=== PATIENT | female | born 1925 | race Caucasian/White ===

== ENCOUNTER 2016-06-20 12:32 | Inpatient (IN) | payer OTHER ==
[2016-06-20] VITALS (8 sets, daily range): BP systolic 115–145; BP diastolic 59–66; PULSE 69–75; TEMP 98
[~2016-06-20] VITALS: Ht 157.5 cm; Wt 55.6 kg
[~2016-06-20 12:32] MED LIST: CARV12.579 PO; CHLO25TA13 PO; CHOL20002 PO; ISOS30TA5 PO; LEVO100T87 PO; NIFE60TA7 PO; NIT4 SL; UBID100C24 PO
--- NOTE | 2016-06-20 12:39 | ERA ---
ER Documentation Chief Complaint Date/Time DATE: 06/20/16 TIME: 12:36 Chief Complaint Shortness of breath HPI The patient is 89-year-old female, presenting to the ER because of acute dyspnea and acute diarrhea that started today. She normally has dialysis on Monday and Monday, however she missed her dialysis last Monday. She has recently been on dialysis for the last 3 months. She denies fever, chills, neck pain, abdominal pain, vomiting, dysuria. She does not smoke or drink Past medical history: Chronic kidney disease on hemodialysis, hypertension, dyslipidemia Past surgical history: Hysterectomy ROS All systems reviewed and are negative except as per history of present illness. Medications Home Meds Reported Medications Calcium Acetate* (Calcium Acetate*) 667 Mg Capsule, 667 MG PO WITH MEALS, #30 CAP 06/20/16 Epoetin Robi (Procrit) 4,000 Unit/1 Ml Vial, 4000 UNIT IJ ONCE A WEEK, VIAL 06/20/16 Nifedipine* (Nifedipine ER*) 90 Mg Tablet.sa, 90 MG PO DAILY, TAB.SA 06/20/16 Hydralazine Hcl* (Hydralazine Hcl*) 25 Mg Tab, 25 MG PO Q8 Y for ELEVATED BLOOD PRESSURE, #90 TAB 06/20/16 Ubidecarenone (Coq-10) 100 Mg Capsule, 100 MG PO DAILY, CAP 12/31/15 Nitroglycerin* (Nitrostat*) 0.4 Mg Tab.subl, 0.4 MG SL Q5MIN Y for CHEST PAIN, BOTTLE 12/31/15 Chlorthalidone* (Chlorthalidone*) 25 Mg Tablet, 25 MG PO DAILY, TAB 12/31/15 Isosorbide Mononitrate* (Isosorbide Mononitrate*) 30 Mg Tab.er.24h, 30 MG PO DAILY, TAB 12/31/15 Cholecalciferol (Vitamin D3) (Vitamin D-3) 2,000 Unit Tablet, 2000 UNIT PO, TAB 12/31/15 Carvedilol* (Carvedilol*) 12.5 Mg Tablet, 12.5 MG PO BID, #60 TAB 12/31/15 Levothyroxine Sodium* (Levothyroxine Sodium*) 100 Mcg Tablet, 100 MCG PO DAILY, TAB 07/22/14 Discontinued Reported Medications Nifedipine* (Nifedipine ER*) 60 Mg Tablet.sa, 60 MG PO BID, TAB.SA 12/31/15 Allergies Allergies: Coded Allergies: Sulfa (Sulfonamide Antibiotics) (Verified Allergy, Severe, RASHES, 06/20/16) PMhx/Soc History of Surgery: Yes (NECK SURGERY) Anesthesia Reaction: No Hx Neurological Disorder: No Hx Respiratory Disorders: No Hx Cardiac Disorders: Yes (HTN) Hx Psychiatric Problems: No Hx Alcohol Use: No Hx Substance Use: No Hx Tobacco Use: No Physical Exam Vitals Vital Signs Date Time Temp Pulse Resp B/P Pulse Ox O2 Delivery O2 Flow Rate FiO2 06/20/16 13:40 Nasal Cannula 2 06/20/16 13:35 Nasal Cannula 2.0 06/20/16 13:16 98.8 98 22 160/80 96 Physical Exam Const: Mild acute distress. Head: Atraumatic. Eyes: Normal Conjunctiva. ENT: Normal External Ears, Nose and Mouth. Neck: Full range of motion. No meningismus. Resp: Bibasilar crackles, tachypnea Cardio: Regular rate and rhythm, no murmurs. Abd: Soft, non distended, normal bowel sounds, non tender. Skin: No petechiae or rashes. Back: No midline or flank tenderness. Ext: Bilateral leg edema, no calf tenderness Neur: Awake and alert. No focal deficit Psych: Normal Mood and Affect. Result Diagram: 06/20/16 1310 06/20/16 1310 Results 24 hrs Laboratory Tests Test 06/20/16 13:10 White Blood Count 9.110^3/ul Red Blood Count 2.6510^6/ul Hemoglobin 10.2g/dl Hematocrit 29.8% Mean Corpuscular Volume 112.5fl Mean Corpuscular Hemoglobin 38.5pg Mean Corpuscular Hemoglobin Concent 34.2g/dl Red Cell Distribution Width 20.9% Platelet Count 08225^3/UL Mean Platelet Volume 11.2fl Neutrophils % 63.2% Lymphocytes % 8.8% Monocytes % 10.2% Eosinophils % 0.2% Basophils % 0.4% Nucleated Red Blood Cells % 0.6/100WBC Neutrophils # 5.710^3/ul Lymphocytes # 0.810^3/ul Monocytes # 0.910^3/ul Eosinophils # 0.010^3/ul Basophils # 0.010^3/ul Nucleated Red Blood Cells # 0.110^3/ul Prothrombin Time 14.4Sec Prothrombin Time Ratio 1.1 INR International Normalized Ratio 1.12 Activated Partial Thromboplast Time 37.4Sec Sodium Level 142mmol/L Potassium Level 5.3mmol/L Chloride Level 105mmol/L Carbon Dioxide Level 16mmol/L Anion Gap 26 Blood Urea Nitrogen 92mg/dl Creatinine 5.82mg/dl Glucose Level 111mg/dl Calcium Level 8.6mg/dl Total Bilirubin 0.6mg/dl Direct Bilirubin 0.00mg/dl Indirect Bilirubin 0.6mg/dl Aspartate Amino Transf (AST/SGOT) 28IU/L Alanine Aminotransferase (ALT/SGPT) 24IU/L Alkaline Phosphatase 103IU/L Troponin I 0.022ng/ml Total Protein 7.5g/dl Albumin 4.3g/dl Globulin 3.20g/dl Albumin/Globulin Ratio 1.34 Current Medications Medications (Trade) Dose Ordered Sig/Sanam Route PRN Reason Start Time Stop Time Status Last Admin Dose Admin Furosemide (Lasix) 80 mg ONCE ONCE IV 06/20/16 14:00 06/20/16 14:01 DC 06/20/16 13:52 IV Flush (NS 3 ml) 3 ml PER PROTOCOL IV 06/20/16 15:30 Ondansetron HCl (Zofran Tab) 4 mg Q6H PRN PO NAUSEA AND/OR VOMITING 06/20/16 15:30 Acetaminophen (Tylenol Tab) 650 mg Q6H PRN PO PAIN LEVEL 1-3 OR FEVER 06/20/16 15:30 Acetaminophen/ Hydrocodone Bitart ([place] (5/325)) 1 tab Q6H PRN PO PAIN LEVEL 4-6 06/20/16 15:30 Famotidine (Pepcid) 20 mg Q12 PO 06/20/16 21:00 Heparin Sodium (Porcine) (Heparin (5000 Units/0.5 ml)) 5,000 unit Q12 SC 06/20/16 21:00 Hydralazine HCl (Apresoline) 10 mg Q6H PRN IV SBP>160 06/20/16 15:30 Calcium Acetate (Phoslo) 667 mg WITH MEALS PO 06/20/16 18:00 Carvedilol (Coreg) 12.5 mg BID PO 06/20/16 21:00 Isosorbide Mononitrate (Imdur) 30 mg DAILY PO 06/21/16 09:00 Levothyroxine Sodium (Synthroid) 100 mcg DAILY PO 06/21/16 09:00 06/21/16 09:00 DC Nifedipine (Procardia Xl) 90 mg DAILY PO 06/21/16 09:00 Albuterol (Proventil 0.083% (Neb)) 2.5 mg Q4H RESP THERAPY PRN HHN SHORTNESS OF BREATH 06/20/16 15:30 Levothyroxine Sodium (Synthroid) 100 mcg DAILY@06 PO 06/21/16 06:00 Procedures/MDM EKG: Read by emergency physician Rate/Rhythm: Normal Sinus Rhythm 65 beats/min QRS, ST, T-waves: No ST elevation, no T inversion, LVH, nonspecific T abnormality, prolonged QT Impression: Abnormal EKG [place] [id number] Radiology Main Line: [phone] DIAGNOSTIC IMAGING REPORT Patient: ЮЛИЯ OLIVEIRA : 1925 Age: 89 Sex: F MR #: [id number] DOS: 06/20/16 1301 Ordering MD: CARMELA HOLLY MD Location: E/R Room/Bed: PROCEDURE: Chest x-ray CLINICAL INDICATION: Chest pain TECHNIQUE: Chest single view COMPARISON: 07/22/2014 FINDINGS: There is interval placement right IJ dialysis catheter. Stable moderate cardiomegaly and an sclerotic aortic calcification is seen. There is moderate to severe CHF and small bilateral pleural effusions. Bones are osteopenic. IMPRESSION: 1. Interval placement right IJ dialysis catheter. 2. Cardiomegaly with interval development of moderate to severe CHF and small bilateral pleural effusions. 3. Atherosclerotic aortic calcification RPTAT: HH .Brett Ha MD, MD Date Time Electronically viewed and signed by .Brett Ha MD, on 06/20/2016 13:33 .W/ CC: CARMELA HOLLY MD MEDICAL MAKING DECISION: The patient is a 89-year-old female, presenting with acute fluid overload, acute hyperkalemia. She was treated with Lasix 80 mg IV for acute fluid overload, Jones catheter. The differential diagnoses considered include but are not limited to asthma, COPD, pneumonia, pulmonary embolus, pleural effusion, congestive heart failure. Consultation: I discussed the patient with her addiction social worker Dr. De Los Santos at 1:05 PM who will arrange for emergent dialysis Critical Care: Time: 35 minutes excluding all billable procedures. Treatments/Evaluations: Close monitoring and treatment of unstable vital signs, cardiorespiratory, and neurologic status, while maintaining tight balance of fluid, respiratory, and cardiac interventions. Departure Diagnosis: Primary Impression: Delay kidney tx func d/t fluid overload requiring acute dialysis Additional Impressions: Hyperkalemia Anemia Condition: Critical Comments I discussed the findings with the patient. I discussed the patient with the on- call hospitalist Dr. Soto who was made aware of the lab, the treatment, the patient condition. The patient is admitted to telemetry CARMELA HOLLY MD Jun 20, 2016 12:39
[2016-06-20 13:21] LABS: ADD SCAN DIFF NO
[2016-06-20 13:24] LABS: ABNORMAL IP MESSAGE 1; BASOPHILS % 0.4 % (0.0-2.0); EOSINOPHILS % 0.2 % (0.0-7.0); HEMATOCRIT 29.8 % (37.0-47.0); HEMOGLOBIN 10.2 g/dl (12.0-16.0); LYMPHOCYTES # 0.8 10^3/ul (0.8-2.9); LYMPHOCYTES % 8.8 % (15.0-51.0); MEAN CORPUSCULAR HEMOGLOBIN 38.5 pg (29.0-33.0); MEAN CORPUSCULAR HGB CONC 34.2 g/dl (32.0-37.0); MEAN CORPUSCULAR VOLUME 112.5 fl (82.0-101.0); MEAN PLATELET VOLUME 11.2 fl (7.4-10.4); MONOCYTE # 0.9 10^3/ul (0.3-0.9); MONOCYTES % 10.2 % (0.0-11.0); NEUTROPHIL # 5.7 10^3/ul (1.6-7.5); NEUTROPHILS % 63.2 % (39.0-77.0); NUCLEATED RED BLOOD CELLS # 0.1 10^3/ul (0.0-0.0); NUCLEATED RED BLOOD CELLS% 0.6 /100WBC (0.0-0.0); PLATELET COUNT 173 10^3/UL (140-415); RED BLOOD COUNT 2.65 10^6/ul (4.20-5.40); RED CELL DISTRIBUTION WIDTH 20.9 % (11.5-14.5); WHITE BLOOD COUNT 9.1 10^3/ul (4.8-10.8)
[2016-06-20 13:32] LABS: ALBUMIN 4.3 g/dl (3.3-4.9)
[2016-06-20 13:33] LABS: INR 1.12; POTASSIUM 5.3 mmol/L (3.5-5.1); PROTIME 14.4 Sec (12.2-14.2); PT RATIO 1.1
--- NOTE | 2016-06-20 13:33 | RADRPT ---
PROCEDURE: Chest x-ray CLINICAL INDICATION: Chest pain TECHNIQUE: Chest single view COMPARISON: 07/22/2014 FINDINGS: There is interval placement right IJ dialysis catheter. Stable moderate cardiomegaly and an sclerot ic aortic calcification is seen. There is moderate to severe CHF and small bilateral pleural effusi ons. Bones are osteopenic. IMPRESSION: 1. Interval placement right IJ dialysis catheter. 2. Cardiomegaly with interval development of moderate to severe CHF and small bilateral pleural eff usions. 3. Atherosclerotic aortic calcification RPTAT: HH .Brett Ha MD, MD Date Time Electronically viewed and signed by .Brett Ha MD, MD on 06/20/2016 13:33 .W/
[2016-06-20 13:34] LABS: PARTIAL THROMBOPLASTIN TIME 37.4 Sec (25.0-35.0)
[2016-06-20 13:35] LABS: ALBUMIN/GLOBULIN RATIO 1.34; BILIRUBIN,INDIRECT 0.6 mg/dl (0-1.1); BILIRUBIN,TOTAL 0.6 mg/dl (0.2-1.3); CREATININE 5.82 mg/dl (0.44-1.00); TOTAL PROTEIN 7.5 g/dl (6.1-8.1)
[2016-06-20 13:36] LABS: CALCIUM 8.6 mg/dl (8.4-10.2)
[2016-06-20] MEDS ORDERED: HYDR-3671 PO (13:40)
[2016-06-20] MEDS ORDERED: NIFE90TA21 PO (13:41)
[2016-06-20] MEDS ORDERED: EPOE40009 IJ (13:43)
[2016-06-20] MEDS ORDERED: CALC667C PO (13:45)
[2016-06-20 13:48] LABS: TROPONIN-I 0.022 ng/ml (0.00-0.12)
[2016-06-20] MEDS ORDERED: FUROSEMIDE 40 MG INJ IV ONE (14:00)
[2016-06-20] MEDS ORDERED: ONDANSETRON 4 MG TAB PO PRN (15:30)
[2016-06-20] MEDS ORDERED: ACETAMINOPHEN 325 MG TAB PO PRN (15:30)
[2016-06-20] MEDS ORDERED: NACL 0.9% 3 ML SYG IV SCH (15:30)
[2016-06-20] MEDS ORDERED: HYDROCODONE/APAP (5/325) TAB PO PRN (15:30)
[2016-06-20] MEDS ORDERED: ALBUTEROL 0.083% (NEB) 2.5 MG/3 ML AMP HHN PRN (15:30)
[2016-06-20] MEDS ORDERED: EPOETIN 4000 UNITS/1 ML INJ (ESRD) SC ONE (17:00)
--- NOTE | 2016-06-20 17:29 | HP ---
DATE OF ADMISSION: 06/20/2016 TIME OF EVALUATION: 1500. REASON FOR ADMISSION: Shortness of breath, diarrhea. Missed hemodialysis. CONSULTATIONS: RAMIREZ RAE MD, nephrology. HISTORY OF THE PRESENT ILLNESS: This is an 89-year-old female with past medical history of essential hypertension, hypothyroidism, and end-stage renal disease on hemodialysis who missed her hemodialysis on Monday06/17/2016. The patient was planned to go to hemodialysis as scheduled on Monday06/20/2016. Meanwhile, she developed multiple episodes of diarrhea on 06/20/2016. The patient was unable to make it to the dialysis unit. Moreover, the patient started having dyspnea. Hence, the patient went to the emergency room. In the emergency room, the patient's chest x-ray showed cardiomegaly with interval development of moderate to CHF and small bilateral pleural effusions. In the emergency room, the patient was treated with supplemental oxygen, inhaled bronchodilators and a single dose of IV Lasix. The patient denied any chest pain, fevers, chills, abdominal pain, nausea or vomiting. The patient denied any other complaints. PAST MEDICAL HISTORY: Essential hypertension, hypothyroidism, end-stage renal disease on hemodialysis, dyslipidemia. PAST SURGICAL HISTORY: Hysterectomy. HOME MEDICATIONS: 1. Procrit 4000 units once a week. 2. Coreg 12.5 mg p.o. b.i.d. 3. Hydralazine 25 mg p.o. q.8 hours p.r.n. elevated blood pressure. 4. Isosorbide mononitrate 30 mg p.o. daily. 5. Nifedipine ER 90 mg p.o. daily. 6. Nitroglycerin 0.4 mg sublingual every 5 minutes p.r.n. chest pain. 7. Calcium acetate 600 mg p.o. with meals. 8. Chlorthalidone 25 mg p.o. daily. 9. Synthroid 100 mcg p.o. daily. 10. Vitamin D3 2000 units p.o. daily. 11. Coenzyme Q10 100 mg p.o. daily. ALLERGIES: SULFA. SOCIAL HISTORY: The patient lives at home. Has a remote history of smoking. Denies any current use of tobacco, alcohol or illicit drugs. REVIEW OF SYSTEMS: A 12-point review of systems and remainder review of systems was negative other than what is mentioned in history of present illness. PHYSICAL EXAMINATION: VITAL SIGNS: Temperature 98.8, pulse rate 98, respiratory rate 22, blood pressure 160/80, oxygen saturation 96% on 2 liters oxygen via nasal cannula. GENERAL: This is an 89-year-old elderly female lying in bed in mild respiratory distress. HEENT: Head normocephalic and atraumatic. Eyes: Anicteric sclerae. Conjunctivae clear. ENT: Nasal septum is midline. Oral mucosa is dry. NECK: Supple. JVD noticed. RESPIRATORY: Bilaterally diminished breath sounds. Use of accessory muscles for respiration. Bilateral fine rales heard at the bases. CARDIAC: Regular rate and rhythm. No obvious murmurs heard. ABDOMEN: Abdomen soft, nontender and nondistended. Bowel sounds positive in all 4 quadrants. GENITOURINARY: Deferred. EXTREMITIES: No cyanosis, no clubbing. Bilateral lower extremity 2+ pitting edema. Peripheral pulses are palpable. NEUROLOGIC: The patient is awake, alert and oriented. Cranial nerves are grossly intact. LABORATORY AND DIAGNOSTIC DATA: WBC 9.1, hemoglobin 10.0, hematocrit 29.8, platelet count 136. Sodium 142, potassium 5.3, chloride 105, carbon dioxide 16 , anion gap 26, BUN 92, creatinine 5.8, glucose 111, calcium 8.6, AST 28, ALT 25 , troponin 0.022. PT 14.4, INR 1.13, PTT 37.4. Chest x-ray: Cardiomegaly with moderate to severe CHF . Small bilateral pleural effusions. Atherosclerotic aortic calcification. IMPRESSION: This is an 89-year-old female came to the emergency room because of dyspnea secondary to missed hemodialysis as well as new onset diarrhea who will be admitted here for further treatment and evaluation. ASSESSMENT AND PLAN: 1. Acute respiratory failure secondary to pulmonary edema from his hemodialysis. The patient will be dialyzed as soon as possible. The patient's shroudman has been informed about the patient's admission. Meanwhile, the patient will be provided with supplemental oxygen and inhaled bronchodilators. 2. Diarrhea. Etiology unclear. Stool for Clostridium difficile and other stool studies will be obtained on this patient. The patient denied any gastrointestinal symptoms including any abdominal pain, nausea or vomiting that warrant further gastroenterology evaluation including imaging studies. 3. Essential hypertension. The patient will be resumed on her home medications. The patient was also started on p.r.n. antihypertensives for any systolic blood pressure readings greater than 160 mmHg. 4. End-stage renal disease on hemodialysis. As mentioned earlier, the patient' s shroudman has been informed about the patient's admission. Hemodialysis as per nephrology. 5. Hypothyroidism. The patient's Synthroid will be resumed. A serum TSH level will be obtained. 6. Hyperkalemia. Most probably secondary to missed hemodialysis. The patient will be monitored with telemetry. The patient is scheduled to get hemodialysis. The patient will be admitted to inpatient telemetry floor. The patient will be started on a renal diet. The patient was started on DVT prophylaxis and gastrointestinal prophylaxis. The patient will remain a FULL CODE. Activity will be as tolerated. The rest of the patient's management will be based on clinical course, the results of diagnostic studies, and input from consultants. Based on the patient's clinical presentation, she most probably requires at least 1 midnights' stay for further management and evaluation of her clinical presentation. The case and management of this patient was fully discussed with Dr. Chi. FLORA CHI MD, AM/FERNANDO Conf#: [id number] DID#: [id number] MTDD
[2016-06-20] MEDS: CALCIUM ACETATE 667 MG CAP PO SCH (19:20)
[2016-06-20] MEDS: FAMOTIDINE 20 MG TAB PO SCH (22:48)
[2016-06-20] MEDS: HEPARIN 5,000 UNIT/0.5 ML SYG SC SCH (22:51)
[2016-06-21] VITALS (20 sets, daily range): BP systolic 121–219; BP diastolic 55–89; PULSE 58–76; RESP 16–20; Ht 157.5 cm; Wt 55.6 kg
[2016-06-21] MEDS: hydrALAzine 20 MG INJ IV PRN ×2 (02:21→09:39)
--- NOTE | 2016-06-21 04:29 | CONS ---
DATE OF ADMISSION: 06/20/2016 DATE OF CONSULTATION: 06/20/2016 RENAL CONSULTATION Thank you very much for asking me to see this patient in renal consultation. HISTORY OF PRESENT ILLNESS: The patient is known to me from previous hospitalizations and outpatien t dialysis unit. The patient did not show up for dialysis last Monday and ended up having significa nt amount of diarrhea. She was feeling weak, edematous, and short of breath and was brought here by paramedics. Review of current emergency room admission shows initial temperature of 98.8, pulse 98, respirations 22, blood pressure 160/80. The patient received supplemental oxygen. Initial WBC count of 9.1, he moglobin 10.2. Sodium 142, potassium 5.3, chloride 105, CO2 16, BUN and creatinine 92 and 5.8. PAST MEDICAL HISTORY: The patient does have significant past medical problems related to 1. Hypertension. 2. End-stage renal disease on maintenance hemodialysis. 3. Right internal jugular catheter for dialysis. 4. Dyslipidemia. 5. Hypothyroidism. SURGICAL HISTORY: Hysterectomy. ALLERGIES: SULFA. SOCIAL HISTORY: Smokes: None. Alcohol: None. MEDICATIONS: As an outpatient include 1. SURY. 2. Hydralazine 25 mg t.i.d. for elevated blood pressure. 3. Coreg 12.5 b.i.d. 4. Isosorbide 30 mg daily. 5. Nifedipine ER 90 daily. 6. Nitroglycerin 0.4 sublingual p.r.n. basis. 7. Calcium acetate 1 t.i.d. 8. Chlorthalidone 25 mg daily. 9. Synthroid 100 mcg daily. 10. D3 2,000 daily. 11. Coenzyme Q10 SOCIAL HISTORY: No current history of tobacco or alcohol. REVIEW OF SYSTEMS: The patient has been short of breath, has difficulty sleeping. Also has noticed edema of both lower extremities. The patient says she does not have any loose bowels at this time. PHYSICAL EXAMINATION: GENERAL: At this time, her blood pressure is 112/70, saturation of 100/72, respiratory rate of 13. She is comfortable in bed in ER holding. NECK: Jugular pressure normal. No significant lymphadenopathy, no thyromegaly. Carotids are well palpable on either side. CHEST: Bibasilar crepitation. Decreased breath sounds. HEART: [place] 6th intercostal just off midclavicular line. No heard. Soft systolic ejection m urmur in left parasternal area. ABDOMEN: Does not show any organomegaly. LOWER EXTREMITIES: Show 1+ edema. LABORATORY DATA: Shows WBC 9.1, hemoglobin 10.2, MCV of 112. Her sodium is 142, potassium 5.3, chl oride 105, CO2 16, BUN and creatinine 92 and 5.82. Past hemoglobin A1c in December 2015, 4.9. Iron saturation 23% when she had uterine bleeding. IMPRESSION: 1. Chronic renal failure on hemodialysis. 2. Hypertension. 3. History of hypothyroidism. 4. Acute fluid overload secondary to missing dialysis treatment. 5. Congestive heart failure edema secondary to fluid overload, noncompliance with dialysis. 6. History of acute loose bowels, resolving. DISCUSSION PLAN: Thank you very much for asking me to see this patient in renal consultation. The patient will be monitored, undergo hemodialysis treatment which was already performed for removal of fluid, and receive Procrit 4000 units IV post-dialysis. The patient will be on renal diet. She will be dialyzed additionally in the morning for additional fluid removal. Thank you very much for asking me to see this patient in consultation. The patient will be followed closely and further recommendations made. Sincerely yours, Dictated By: RAMIREZ RAE MD, KG/FERNANDO Conf#: [id number] DID#: [id number]
[2016-06-21 06:00] LABS: ADD SCAN DIFF NO
[2016-06-21] MEDS ORDERED: LEVOTHYROXINE 100 MCG TAB PO SCH ×2 (06:00→09:00)
[2016-06-21 06:16] LABS: ABNORMAL IP MESSAGE 1; HEMOGLOBIN 9.3 g/dl (12.0-16.0); MEAN CORPUSCULAR VOLUME 112.2 fl (82.0-101.0); MEAN PLATELET VOLUME 11.3 fl (7.4-10.4); PLATELET COUNT 154 10^3/UL (140-415); POTASSIUM 3.9 mmol/L (3.5-5.1); RED CELL DISTRIBUTION WIDTH 20.7 % (11.5-14.5); WHITE BLOOD COUNT 5.2 10^3/ul (4.8-10.8)
[2016-06-21 06:18] LABS: CREATININE 3.68 mg/dl (0.44-1.00); RED BLOOD COUNT 0.98 10^6/ul (4.20-5.40)
[2016-06-21 06:19] LABS: CALCIUM 8.6 mg/dl (8.4-10.2); MEAN CORPUSCULAR HEMOGLOBIN 94.9 pg (29.0-33.0); MEAN CORPUSCULAR HGB CONC 84.5 g/dl (32.0-37.0)
[2016-06-21 06:20] LABS: CHOL/HDL RATIO 2.6 RATIO; PHOSPHORUS 6.8 mg/dl (2.5-4.9)
[2016-06-21 06:47] LABS: THYROID STIMULATING HORMONE 19.4 MIU/L (0.465-4.680)
[2016-06-21] MEDS ORDERED: ISOSORBIDE MONONITRATE(SR)30 MG TAB PO SCH (09:00)
[2016-06-21] MEDS ORDERED: NIFEdipine (XL) 90 MG TAB PO SCH (09:00)
--- NOTE | 2016-06-21 09:22 | PN ---
Date/Time of Note Date/Time of Note DATE: 06/21/16 TIME: 09:19 Assessment/Plan VTE Prophylaxis VTE Prophylaxis Intervention: heparin Lines/Catheters Urinary Cath still in place: Yes Reason Cath still needed: other (indicate) (To be discontinued.) Assessment/Plan Chief Complaint/Hosp Course 1. Acute respiratory failure secondary to pulmonary edema from missed hemodialysis. The patient will be provided with supplemental oxygen and inhaled bronchodilators. 2. Diarrhea, etiology unclear. Stool for Clostridium difficile and other stool studies pending. The patient denied any gastrointestinal symptoms including any abdominal pain, nausea or vomiting that warrant further gastroenterology evaluation including imaging studies. 3. Essential hypertension. The patient will be continued on her home medications. Continue p.r.n. antihypertensives for any systolic blood pressure readings greater than 160 mmHg. 4. End-stage renal disease on hemodialysis. Hemodialysis as per nephrology. 5. Hypothyroidism. Thyroid panel showing very high TSH and low free T4. Will increase the dose of Synthroid. 6. Hyperkalemia, most probably secondary to missed hemodialysis. Resolved with hemodialysis. 7. Fluids, electrolytes, and nutrition. Renal diet. 8. DVT prophylaxis. Subcutaneous heparin. 9. Gastrointestinal prophylaxis. Histamine 2 receptor blockers. 10. Plan. Hemodialysis as per nephrology. Obtain stool studies. Case discussed with Dr. Moyer. Problems: Subjective 24 Hr Interval Summary Free Text/Dictation Blood pressures running high. Exam/Review of Systems Vital Signs Vitals Vital Signs Date Time Temp Pulse Resp B/P Pulse Ox O2 Delivery O2 Flow Rate FiO2 06/21/16 09:16 58 06/21/16 07:45 18 185/56 98 Nasal Cannula 2.0 06/20/16 22:21 98.0 Intake and Output 06/20/16 06/20/16 06/21/16 15:00 23:00 07:00 Intake Total 500 ml Output Total 3500 ml 250 ml Balance -3000 ml -250 ml Exam GENERAL: This is an 89-year-old elderly female lying in bed in no apparent distress. HEENT: Head normocephalic and atraumatic. Eyes: Anicteric sclerae. Conjunctivae clear. ENT: Nasal septum is midline. Oral mucosa is dry. NECK: Supple. JVD noticed. RESPIRATORY: Bilaterally diminished breath sounds. No use of accessory muscles for respiration. Bilateral fine rales heard at the bases. CARDIAC: Regular rate and rhythm. No obvious murmurs heard. ABDOMEN: Abdomen soft, nontender and nondistended. Bowel sounds positive in all 4 quadrants. GENITOURINARY: Deferred. EXTREMITIES: No cyanosis, no clubbing. Bilateral lower extremity 2+ pitting edema. Peripheral pulses are palpable. NEUROLOGIC: The patient is awake, alert and oriented. Cranial nerves are grossly intact. Results Result Diagram: 06/21/16 0520 06/21/16 0520 Results 24 hrs Laboratory Tests Test 06/20/16 13:10 06/21/16 05:20 White Blood Count 9.1 5.2 # Red Blood Count 2.65 L 0.98 #L Hemoglobin 10.2 #L 9.3 L Hematocrit 29.8 L 11.0 #L Mean Corpuscular Volume 112.5 #H 112.2 H Mean Corpuscular Hemoglobin 38.5 #H 94.9 #H Mean Corpuscular Hemoglobin Concent 34.2 84.5 #H Red Cell Distribution Width 20.9 H 20.7 H Platelet Count 173 154 Mean Platelet Volume 11.2 H 11.3 H Neutrophils % 63.2 Lymphocytes % 8.8 L Monocytes % 10.2 Eosinophils % 0.2 Basophils % 0.4 Nucleated Red Blood Cells % 0.6 H Neutrophils # 5.7 Lymphocytes # 0.8 Monocytes # 0.9 Eosinophils # 0.0 Basophils # 0.0 Nucleated Red Blood Cells # 0.1 H Prothrombin Time 14.4 H Prothrombin Time Ratio 1.1 INR International Normalized Ratio 1.12 Activated Partial Thromboplast Time 37.4 H Sodium Level 142 143 Potassium Level 5.3 H 3.9 Chloride Level 105 109 Carbon Dioxide Level 16 L 23 Anion Gap 26 H 15 # Blood Urea Nitrogen 92 H 49 #H Creatinine 5.82 H 3.68 #H Glucose Level 111 94 Calcium Level 8.6 8.6 Total Bilirubin 0.6 Direct Bilirubin 0.00 Indirect Bilirubin 0.6 Aspartate Amino Transf (AST/SGOT) 28 Alanine Aminotransferase (ALT/SGPT) 24 Alkaline Phosphatase 103 Troponin I 0.022 Total Protein 7.5 Albumin 4.3 Globulin 3.20 Albumin/Globulin Ratio 1.34 Hemoglobin A1c 4.3 Phosphorus Level 6.8 H Magnesium Level 2.0 Triglycerides Level 104 Cholesterol Level 177 LDL Cholesterol, Calculated 88 HDL Cholesterol 68 Cholesterol/HDL Ratio 2.6 Thyroid Stimulating Hormone (TSH) 19.400 H Free Thyroxine 0.74 L Medications Medications Current Medications Ondansetron HCl (Zofran Tab) 4 mg Q6H PRN PO NAUSEA AND/OR VOMITING; Start 06/20 at 15:30 Acetaminophen (Tylenol Tab) 650 mg Q6H PRN PO PAIN LEVEL 1-3 OR FEVER; Start at 15:30 Acetaminophen/ Hydrocodone Bitart ([place] (5/325)) 1 tab Q6H PRN PO PAIN LEVEL 4 -6 Last administered on 06/21/16 02:28; Admin Dose 1 TAB; Start 06/20/16 at 15:30 Famotidine (Pepcid) 20 mg Q12 PO Last administered on 06/20/16 22:48; Admin Dose 20 MG; Start 06/20/16 at 21:00 Heparin Sodium (Porcine) (Heparin (5000 Units/0.5 ml)) 5,000 unit Q12 SC Last administered on 06/20/16 22:51; Admin Dose 5,000 UNIT; Start 06/20/16 at 21:00 Hydralazine HCl (Apresoline) 10 mg Q6H PRN IV SBP>160 Last administered on 02:21; Admin Dose 10 MG; Start 06/20/16 at 15:30 Carvedilol (Coreg) 12.5 mg BID PO Last administered on 06/21/16 06:07; Admin Dose 12.5 MG; Start 06/20/16 at 21:00 Isosorbide Mononitrate (Imdur) 30 mg DAILY PO Last administered on 06/21/16 08: 04; Admin Dose 30 MG; Start 06/21/16 at 09:00 Nifedipine (Procardia Xl) 90 mg DAILY PO Last administered on 06/21/16 06:06; Admin Dose 90 MG; Start 06/21/16 at 09:00 Levothyroxine Sodium (Synthroid) 100 mcg DAILY@06 PO Last administered on 05:51; Admin Dose 100 MCG; Start 06/21/16 at 06:00 FLORA YA NP Jun 21, 2016 09:22
[2016-06-21] MEDS: CALCIUM ACETATE 667 MG CAP PO SCH ×2 (09:37→11:50)
[2016-06-21] MEDS: FAMOTIDINE 20 MG TAB PO SCH (09:37)
[2016-06-21] MEDS: HEPARIN 5,000 UNIT/0.5 ML SYG SC SCH (09:38)
[2016-06-21 10:58] LABS: LYMPHOCYTES # 1.6 10^3/ul (0.8-2.9); MONOCYTE # 0.6 10^3/ul (0.3-0.9); MYELOCYTES # 0.1; NEUTROPHIL # 2.8 10^3/ul (1.6-7.5)
--- NOTE | 2016-06-21 13:55 | CONS ---
Date/Time of Note Date/Time of Note DATE: 06/21/16 TIME: 13:48 Consult Date/Type/Reason Admit Date/Time Jun 20, 2016 at 14:06 Initial Consult Date 06/20/16 Subjective MUCH BETTER, NO SOB,WOKEN UP TOO EARLY IN AM, FOOD NOT GOOD.,NO SOB,EDEMA STILL THERE. Objective Vital Signs Date Time Temp Pulse Resp B/P Pulse Ox O2 Delivery O2 Flow Rate FiO2 06/21/16 13:19 63 06/21/16 10:17 Nasal Cannula 3.0 06/21/16 09:56 97.7 20 219/89 96 Intake and Output 06/20/16 06/20/16 06/21/16 15:00 23:00 07:00 Intake Total 500 ml Output Total 3500 ml 250 ml Balance -3000 ml -250 ml Exam JVP NORMAL, CHEST CLEAR UPPER CHEST, BASE CREPTS AND DECREASED BREATH SOUNDS BILATERALLY ABDOMEN SOFT CVS REGULAR., LOWER EXTREMITIES BILATERAL 1 PLUS EDEMA. Results/Medications Result Diagram: 06/21/16 0520 06/21/16 0520 Results 24 hrs Laboratory Tests Test 06/21/16 05:20 White Blood Count 5.2 # Red Blood Count 0.98 #L Hemoglobin 9.3 L Hematocrit 11.0 #L Mean Corpuscular Volume 112.2 H Mean Corpuscular Hemoglobin 94.9 #H Mean Corpuscular Hemoglobin Concent 84.5 #H Red Cell Distribution Width 20.7 H Platelet Count 154 Mean Platelet Volume 11.3 H Neutrophils % 53.0 Band Neutrophils % 2.0 Lymphocytes % 31.0 Monocytes % 12.0 H Myelocytes % 2.0 H Neutrophils # 2.8 Lymphocytes # 1.6 Monocytes # 0.6 Myelocytes # 0.1 Sodium Level 143 Potassium Level 3.9 Chloride Level 109 Carbon Dioxide Level 23 Anion Gap 15 # Blood Urea Nitrogen 49 #H Creatinine 3.68 #H Glucose Level 94 Hemoglobin A1c 4.3 Calcium Level 8.6 Phosphorus Level 6.8 H Magnesium Level 2.0 Triglycerides Level 104 Cholesterol Level 177 LDL Cholesterol, Calculated 88 HDL Cholesterol 68 Cholesterol/HDL Ratio 2.6 Thyroid Stimulating Hormone (TSH) 19.400 H Free Thyroxine 0.74 L Medications Current Medications Ondansetron HCl (Zofran Tab) 4 mg Q6H PRN PO NAUSEA AND/OR VOMITING; Start 06/20 at 15:30 Acetaminophen (Tylenol Tab) 650 mg Q6H PRN PO PAIN LEVEL 1-3 OR FEVER; Start at 15:30 Acetaminophen/ Hydrocodone Bitart ([place] (5/325)) 1 tab Q6H PRN PO PAIN LEVEL 4 -6 Last administered on 06/21/16 02:28; Admin Dose 1 TAB; Start 06/20/16 at 15:30 Famotidine (Pepcid) 20 mg Q12 PO Last administered on 06/21/16 09:37; Admin Dose 20 MG; Start 06/20/16 at 21:00 Heparin Sodium (Porcine) (Heparin (5000 Units/0.5 ml)) 5,000 unit Q12 SC Last administered on 06/21/16 09:38; Admin Dose 5,000 UNIT; Start 06/20/16 at 21:00 Hydralazine HCl (Apresoline) 10 mg Q6H PRN IV SBP>160 Last administered on 09:39; Admin Dose 10 MG; Start 06/20/16 at 15:30 Isosorbide Mononitrate (Imdur) 30 mg DAILY PO Last administered on 06/21/16 08: 04; Admin Dose 30 MG; Start 06/21/16 at 09:00 Nifedipine (Procardia Xl) 90 mg DAILY PO Last administered on 06/21/16 06:06; Admin Dose 90 MG; Start 06/21/16 at 09:00 Levothyroxine Sodium (Synthroid) 125 mcg DAILY@06 PO ; Start 06/22/16 at 06:00 Carvedilol (Coreg) 25 mg BID PO ; Start 06/21/16 at 10:30 Assessment/Plan Chief Complaint/Hosp Course CHF IMPROVED HYPERKALEMIA IMPROVED HYPERTENSION UNCONTROLLED, SEE MEDS METABOLIC ACIDOSIS IMPROVED TSH AT 19, SYNTHROID TO BE INCREASED MACROCYTOSIS, CHECK B12, FOLIC ACID HD PENDING TODAY DIARRHEA IMPROVED. Problems: RAMIREZ RAE MD Jun 21, 2016 13:55
--- NOTE | 2016-06-21 16:36 | PDOCDIS ---
Discharge Instructions DIAGNOSIS Discharge Diagnosis: Acute respiratory failure. Hypoxic, secondary to missed hemodialysis. CONDITION Patient Condition: Stable HOME CARE INSTRUCTIONS: Diet Instructions: Reduced SodiumSpecial Diet: Renal diet OTHER ORDERS: Other Orders: 1. Resume home medications. Start taking the increased dose of Synthroid. 2. Renal diet. 3. Follow-up with hemodialysis clinic as scheduled. 4. Follow-up with your primary care physician 1 week. 5. Go to the nearest emergency room if you have persistent diarrhea, shortness of breath, chest pain, or any other unusual signs/symptoms. FLORA YA NP Jun 21, 2016 16:36
[2016-06-21] MEDS ORDERED: LEVO125T PO (16:38)
--- NOTE | 2016-06-21 20:58 | DS ---
DATE OF ADMISSION: 06/20/2016 DATE OF DISCHARGE: 06/21/2016 FINAL DIAGNOSES: 1. Acute respiratory failure secondary to pulmonary edema from missed hemodialysis. 2. Diarrhea, currently resolved. 3. Accelerated hypertension. 4. End-stage renal disease on hemodialysis. 5. Hypothyroidism. 6. Hyperkalemia, resolved. 7. Macrocytic anemia. CONSULTATIONS: 1. Dr. Thu Daly, Nephrology. HOSPITAL COURSE: This is an 89-year-old female with past medical history of essential hypertension, hypothyroidism, and end-stage renal disease on hemodialysis who missed her hemodialysis on 06/17/2016. The patient was planning to go to hemodialysis as scheduled on Monday06/20/2016. Meanwhile , she developed multiple episodes of diarrhea on 06/20/2016. The patient was unable to make it to the dialysis unit. Moreover, the patient started having dyspnea. Hence, the patient went to the nearest emergency room. In the emergency room, the patient's chest x-ray showed cardiomegaly with interval development of moderate CHF and small bilateral pleural effusions. In the emergency room, the patient was treated with supplemental oxygen and inhaled bronchodilators and a single dose of IV Lasix. The patient denied any chest pain, fevers, chills, abdominal pain, nausea, or vomiting. The patient denied any other complaints. Provided the patient's history of present illness, her comorbidities, and the diagnostic findings, a clinical decision was made to admit the patient to inpatient setting to have her further evaluated. The patient was admitted to inpatient telemetry floor. Nephrology consult was obtained. The patient was started on supplemental oxygen. The patient's home medications were resumed. The patient underwent emergent hemodialysis with improvement in the patient's acute respiratory failure. The patient was provided with supplemental oxygen and inhaled bronchodilators. The patient received hemodialysis 2 times with significant improvement of the presenting symptoms. One of the patient's chief complaints upon arrival was diarrhea. Stool studies including stool for C. diff was ordered on this patient. Nevertheless, no stool studies were sent because of unclear reasons. Fortunately, the patient's diarrhea resolved. The patient had no significant gastrointestinal symptoms. The patient was noticed to have very high blood pressure readings and the patient's antihypertensives were adjusted to obtain optimal blood pressure control. The patient was also maintained on p.r.n. antihypertensives for elevated blood pressure readings. The patient has hypothyroidism. The patient was maintained on Synthroid for the same. The patient's thyroid panel showed a very high TSH and low free T4. Hence, the patient's thyroid medications were adjusted. The patient had hyperkalemia upon presentation. This could be most probably secondary to missed hemodialysis. The patient's hyperkalemia resolved with hemodialysis. The patient was noticed to have macrocytic anemia. However , the patient's vitamin B12 and folate levels were within normal limits. The patient had a stable hospital course. The patient's symptomatology is completely resolved. The patient will be discharged home. DISCHARGE DISPOSITION AND PLAN: The patient will be discharged home today. The patient was instructed to resume her home medications. The patient was instructed to start taking increased dose of Synthroid. She was instructed to follow a renal diet. She was instructed to follow up with her hemodialysis clinic as scheduled. The patient was instructed to follow up with her primary care physician in 1 week. The patient was instructed to go to the nearest emergency room if she has persistent diarrhea, shortness of breath, chest pain, or any other unusual signs or symptoms. The patient verbalized understanding of her discharge instructions. CONDITION AT DISCHARGE: Stable. DISCHARGE PHYSICAL EXAMINATION: GENERAL: This is an 89-year-old elderly female lying in bed in no apparent distress. HEENT: Head normocephalic and atraumatic. Eyes: Anicteric sclerae. Conjunctivae clear. ENT: Nasal septum is midline. Oral mucosa is dry. NECK: Supple. JVD noticed. RESPIRATORY: Bilaterally diminished breath sounds. No use of accessory muscles for respiration. Bilateral fine rales heard at the bases. CARDIAC: Regular rate and rhythm. No obvious murmurs heard. ABDOMEN: Abdomen soft, nontender and nondistended. Bowel sounds positive in all 4 quadrants. GENITOURINARY: Deferred. EXTREMITIES: No cyanosis, no clubbing. Bilateral lower extremity 2+ pitting edema. Peripheral pulses are palpable. NEUROLOGIC: The patient is awake, alert and oriented. Cranial nerves are grossly intact. DISCHARGE MEDICATIONS: 1. Synthroid 125 mcg p.o. daily. 2. Calcium acetate 667 mg p.o. with meals. 3. Coreg 12.5 mg p.o. b.i.d. 4. Chlorthalidone 25 mg p.o. daily. 5. Vitamin D3 at 2000 units p.o. daily. 6. Epogen 4000 units once a week. 7. Hydralazine 25 mg p.o. q.8 hours p.r.n. elevated blood pressure. 8. Isosorbide mononitrate 30 mg p.o. daily. 9. Nifedipine 90 mg p.o. daily. 10. Coenzyme Q10 at 100 mg p.o. daily. 11. Nitroglycerin 0.4 mg sublingual q.5 minutes p.r.n. chest pain. PERTINENT LABORATORY AND DIAGNOSTIC DATA: 1. Latest CBC: WBC 5.2, hemoglobin 9.3, platelet count 154. 2. Latest BMP: Sodium 143, potassium 3.9, chloride 100, carbon dioxide 23, anion gap 15, BUN 49, creatinine 3.6. 3. Hemoglobin A1c 4.3. 4. Fasting lipid panel: Triglycerides 40, total cholesterol 177, LDL 88, HDL of 68. 5. Thyroid panel: TSH of 19.4, free T4 of 0.74. 6. Chest x-ray upon admission. Cardiomegaly with interval development of moderate to severe CHF and small bilateral pleural effusions. At this time, I would like to thank Dr. Daly for seeing the patient and providing clinical recommendations. The case and management of this patient was fully discussed with Dr. Chi. Approximately 35 minutes was spent on coordinating the discharge on this patient. FLORA CHI MD, AM/FERNANDO Conf#: [id number] DID#: [id number] CC: AMI LIRIANO MD;*EndCC* MTDD
[2016-06-22] MEDS ORDERED: LEVOTHYROXINE 125 MCG TAB PO SCH (06:00)
== END 2016-06-21 18:00 | disposition home or self-care (01) | DRG 189 ==
LOC: E/R 12:32 → TEL 14:06
PROVIDERS: ADMIT Family Medicine; ATTEND Family Medicine
PROC: 5A1D60Z (ICD-10-PCS; principal; 2016-06-20)
DX: J96.00 Acute respiratory failure, unspecified whether with hypoxia or hypercapnia (principal); I13.2 Hypertensive heart and chronic kidney disease with heart failure and with stage 5 chronic kidney disease, or end stage renal disease; N18.6 End stage renal disease; E87.70 Fluid overload, unspecified; E78.5 Hyperlipidemia, unspecified; E87.5 Hyperkalemia; E03.9 Hypothyroidism, unspecified; R19.7 Diarrhea, unspecified; Z91.15 Patient's noncompliance with renal dialysis; Z99.2 Dependence on renal dialysis; D53.9 Nutritional anemia, unspecified; I50.9 Heart failure, unspecified
CPT/HCPCS: 36415; 71010; 80048; 80053; 80061; 82306; 82607; 82746; 83036; 83735; 84100; 84439; 84443; 84484; 85025; 85610; 85730; 90935; 93005; 96372; 96374; 96375; J0360; J0886; J1644; J1940

== ENCOUNTER 2016-07-26 20:45 | Inpatient (IN) | payer OTHER ==
[~2016-07-26] VITALS: Ht 152.4 cm; Wt 61.2 kg
[~2016-07-26 20:45] MED LIST changes: +CALC667C PO; +EPOE40009 IJ; +HYDR-3671 PO; -LEVO100T87 PO; +LEVO125T PO; -NIFE60TA7 PO; +NIFE90TA21 PO
[2016-07-26] MEDS ORDERED: SODIUM CHLORIDE 0.9% 1L BAG IV* STA (20:47)
[2016-07-26 21:36] LABS: ADD SCAN DIFF NO
[2016-07-26 21:56] LABS: ALBUMIN 3.9 g/dl (3.3-4.9)
[2016-07-26 21:57] LABS: INR 1.21; PROTIME 15.4 Sec (12.2-14.2); PT RATIO 1.2
[2016-07-26 21:58] LABS: PARTIAL THROMBOPLASTIN TIME 39.5 Sec (25.0-35.0)
[2016-07-26 21:59] LABS: ALBUMIN/GLOBULIN RATIO 1.21; BILIRUBIN,INDIRECT 0.3 mg/dl (0-1.1); BILIRUBIN,TOTAL 0.3 mg/dl (0.2-1.3); CALCIUM 8.2 mg/dl (8.4-10.2); CREATININE 7.84 mg/dl (0.44-1.00); TOTAL PROTEIN 7.1 g/dl (6.1-8.1)
[2016-07-26 22:10] LABS: TROPONIN-I 0.012 ng/ml (0.00-0.12)
--- NOTE | 2016-07-26 22:14 | RADRPT ---
PROCEDURE: XR Chest. CLINICAL INDICATION: Shortness of breath. TECHNIQUE: AP Portable chest. COMPARISON: 06/20/2016 FINDINGS: There is moderate to marked cardiomegaly. Some mild diffuse interstitial edema is seen. There is s ome mild opacity at the left lung base. A right chest tunnel dialysis catheter is unchanged. The o sseous structures are unremarkable. IMPRESSION: Mild interstitial edema and left base opacity likely due to pleural effusion and atelectasis. RPTAT: HIKT .Davide Gonzalez MD, MD Date Time Electronically viewed and signed by .Davide Gonzalez MD, MD on 07/26/2016 22:14 .T/
[2016-07-26 22:15] LABS: POTASSIUM 6.2 mmol/L (3.5-5.1)
[2016-07-26] MEDS ORDERED: ALBUTEROL 0.5% (NEB) 2.5 MG/0.5 ML AMP INH STA (22:15)
[2016-07-26] MEDS ORDERED: NA POLYST SULFON 15 GM/60 ML BTL PO STA (22:15)
[2016-07-26] MEDS ORDERED: FUROSEMIDE 40 MG INJ IV STA (22:15)
[2016-07-26] MEDS ORDERED: CA CHLORIDE 10% 10 ML SYRINGE IV STA (22:15)
[2016-07-26] MEDS ORDERED: NA BICARBONATE 8.4% 50 ML SYG IV STA (22:15)
[2016-07-26 22:23] LABS: ABNORMAL IP MESSAGE 1; BASOPHILS % 0.4 % (0.0-2.0); EOSINOPHILS % 0.1 % (0.0-7.0); HEMATOCRIT 28.3 % (37.0-47.0); HEMOGLOBIN 9.3 g/dl (12.0-16.0); LYMPHOCYTES # 0.8 10^3/ul (0.8-2.9); MEAN CORPUSCULAR HEMOGLOBIN 33.2 pg (29.0-33.0); MEAN CORPUSCULAR HGB CONC 32.9 g/dl (32.0-37.0); MEAN CORPUSCULAR VOLUME 101.1 fl (82.0-101.0); MEAN PLATELET VOLUME 11.4 fl (7.4-10.4); MONOCYTE # 1.2 10^3/ul (0.3-0.9); MONOCYTES % 17.4 % (0.0-11.0); NEUTROPHIL # 4.1 10^3/ul (1.6-7.5); NEUTROPHILS % 59.2 % (39.0-77.0); PLATELET COUNT 160 10^3/UL (140-415); WHITE BLOOD COUNT 6.9 10^3/ul (4.8-10.8)
[2016-07-26] MEDS ORDERED: LEVO100T87 PO (23:08)
[2016-07-26] MEDS ORDERED: SPIR50TA PO (23:08)
[2016-07-26] MEDS ORDERED: SPIR25TA PO (23:12)
--- NOTE | 2016-07-26 23:12 | RADRPT ---
PROCEDURE: CR Left Knee CLINICAL INDICATION: Fall TECHNIQUE: An AP, lateral, and an oblique radiographs were submitted. COMPARISON: None FINDINGS: Osseous Structures: The osseous elements appear well mineralized and intact. Joint Spaces: Moderately severe degenerative changes seen about the patellar femoral and femoral tib ial joint spaces. No joint effusion is evident. Soft Tissues: Vascular calcifications noted. IMPRESSION: 1. No fracture or dislocation is evident. 2. Moderately severe osteoarthritic change. 3. Vascular calcification. Physician Luisa Date Time Electronically viewed and signed by Jonn Stark Physician on 07/26/2016 23:11 /
--- NOTE | 2016-07-26 23:13 | RADRPT ---
PROCEDURE: XR Right humerus CLINICAL INDICATION: Fall, pain TECHNIQUE: AP and lateral radiographs were submitted. COMPARISON: None FINDINGS: Osseous structures: The osseous elements appear intact with no fracture identified. Joint spaces: Extensive degenerative changes seen about the right AC joint. The glenohumeral joint and elbow joint appear unremarkable. Soft tissues: appear unremarkable. IMPRESSION: 1. No fracture or dislocation is evident. 2. Extensive degenerative change seen about the right AC joint. Physician Luisa Date Time Electronically viewed and signed by Physician Luisa on 07/26/2016 23:13 /
--- NOTE | 2016-07-26 23:14 | RADRPT ---
PROCEDURE: CR Right Knee CLINICAL INDICATION: Fall TECHNIQUE: An AP, lateral, and an oblique radiographs were submitted. COMPARISON: None FINDINGS: Osseous Structures: The osseous elements are intact with no fracture identified. Join Spaces: Moderate osteoarthritic changes seen about the patellar femoral and femoral tibial join t spaces with no joint effusion evident. Soft Tissues: Chondrocalcinosis is evident. Vascular calcification is evident. IMPRESSION: 1. No fracture or dislocation is evident. 2. Moderate osteoarthritic change. 3. Chondrocalcinosis 4. Vascular calcification. Physician Luisa Date Time Electronically viewed and signed by Physician Luisa on 07/26/2016 23:14 /
[2016-07-26 23:51] LABS: ADD UMIC YES; URINE BILIRUBIN (Dip) NEGATIVE (NEGATIVE); URINE BLOOD (Dip) 2+ (NEGATIVE); URINE COLOR LT. YELLOW (YELLOW); URINE GLUCOSE (Dip) NEGATIVE (NEGATIVE); URINE KETONES (Dip) NEGATIVE (NEGATIVE); URINE LEUKOCYTE ESTERASE (Dip) TRACE (NEGATIVE); URINE NITRITE (Dip) POSITIVE (NEGATIVE); URINE TOTAL PROTEIN (Dip) 2+ (NEGATIVE); URINE UROBILINOGEN (Dip) 0.2 E.U./dL (0.1-1.0)
[2016-07-27] VITALS (21 sets, daily range): BP systolic 137–184; BP diastolic 53–90; PULSE 62–90; RESP 16–20; Ht 152.4 cm; Wt 61.2 kg
--- NOTE | 2016-07-27 00:23 | ERA ---
ER Documentation Chief Complaint Date/Time DATE: 07/27/16 TIME: 00:02 Chief Complaint increasing weakness per family, fell 2x today, rt hip pain, - deformity/loc HPI This is an 89-year-old female with known history of end-stage renal disease who gets dialysis every Monday and Monday. The patient's take up operator is Dr. De Los Santos. The patient indicates that she has missed her past 3 dialysis sessions due to generalized weakness. The patient indicates that she has had multiple episodes of her knees going out on her, as she states, and therefore has had frequent falls over the past 48 hours landing on flexed bilateral knees. She states she has not hit her head or lose consciousness. She states that she has not gone to her dialysis sessions is been too difficult for her to ambulate due to the bilateral knee pain. She denies any shortness of breath at rest or exertion. She denies any dyspnea. She denies any chest pain or pressure that radiates to the neck arm back or jaw. The patient denies any shortness of breath at rest or exertion. She denies any back pain. She has had no fevers or shaking or chills. ROS All systems reviewed and are negative except as per history of present illness. Medications Home Meds Reported Medications Spironolactone* (Aldactone*) 25 Mg Tablet, 25 MG PO BID, #60 TAB 07/26/16 Levothyroxine Sodium* (Levothyroxine Sodium*) 100 Mcg Tablet, 100 MCG PO BEFORE BREAKFAST, #30 TAB 07/26/16 Calcium Acetate* (Calcium Acetate*) 667 Mg Capsule, 667 MG PO WITH MEALS, #30 CAP 06/20/16 Nifedipine* (Nifedipine ER*) 90 Mg Tablet.sa, 90 MG PO DAILY, TAB.SA 06/20/16 Hydralazine Hcl* (Hydralazine Hcl*) 25 Mg Tab, 25 MG PO Q8 Y for ELEVATED BLOOD PRESSURE, #90 TAB 06/20/16 Chlorthalidone* (Chlorthalidone*) 25 Mg Tablet, 25 MG PO DAILY, TAB 12/31/15 Isosorbide Mononitrate* (Isosorbide Mononitrate*) 30 Mg Tab.er.24h, 30 MG PO DAILY, TAB 12/31/15 Carvedilol* (Carvedilol*) 12.5 Mg Tablet, 12.5 MG PO BID, #60 TAB 12/31/15 Discontinued Reported Medications Spironolactone* (Aldactone*) 50 Mg Tablet, 25 MG PO BID, #60 TAB 07/26/16 Epoetin Robi (Procrit) 4,000 Unit/1 Ml Vial, 4000 UNIT IJ ONCE A WEEK, VIAL 06/20/16 Ubidecarenone (Coq-10) 100 Mg Capsule, 100 MG PO DAILY, CAP 12/31/15 Nitroglycerin* (Nitrostat*) 0.4 Mg Tab.subl, 0.4 MG SL Q5MIN Y for CHEST PAIN, BOTTLE 12/31/15 Cholecalciferol (Vitamin D3) (Vitamin D-3) 2,000 Unit Tablet, 2000 UNIT PO, TAB 12/31/15 Discontinued Scripts Levothyroxine Sodium* (Synthroid*) 125 Mcg Tablet, 125 MCG PO DAILY@06 for 30 Days, TAB Prov:FLORA YA STRIP ROLLER 06/21/16 Allergies Allergies: Coded Allergies: Sulfa (Sulfonamide Antibiotics) (Verified Allergy, Severe, RASHES, 06/20/16) PMhx/Soc History of Surgery: Yes (hysterectomy, right knee, cervical neck fusion) Anesthesia Reaction: No Hx Neurological Disorder: No Hx Respiratory Disorders: No Hx Cardiac Disorders: Yes (HTN) Hx Psychiatric Problems: No Hx Miscellaneous Medical Probl: Yes (renal failure on dialysis) Hx Alcohol Use: No Hx Substance Use: No Hx Tobacco Use: No Smoking Status: Never smoker Physical Exam Vitals Vital Signs Date Time Temp Pulse Resp B/P Pulse Ox O2 Delivery O2 Flow Rate FiO2 07/26/16 23:08 88 20 99 Nasal Cannula 3.0 07/26/16 23:08 99 3.0 07/26/16 21:36 Nasal Cannula 2 07/26/16 20:46 97.9 59 19 172/75 97 Physical Exam Constitutional:Well-developed. Well-nourished. HEENT:Normocephalic. Atraumatic.Pupils were equal round reactive to light. Moist mucous membranes.No tonsillar exudates. No nasoseptal hematoma. No hemotympanum. Neck: No nuchal rigidity. No lymphadenopathy. No posterior cervical spine tenderness or step-offs. Respiratory: Not using accessory muscles of respiration. Decreased breath sounds in the left lower lung with normal breath sounds of the right upper and lower lung no rhonchi. No rales. No wheezing. Cardiovascular: Regular rate regular rhythm.No murmurs. No rubs were appreciated.S1, S2 normal. Distal pulses are palpable 2+ bilaterally. GI: Abdomen was soft. Nontender. Non Distended. No pulsatile abdominal masses or bruits. No rebound. No guarding. Bowel sounds were present and normal. Muscle skeletal: No asymmetrical calf tenderness or swelling. Bilateral patella tenderness. No laxity on valgus or varus stress testing of the left of the right knee. Lower extremities are equal length and symmetrical with no internal/external rotation. Midshaft tenderness over the right humerus. Normal lie to both humeral heads. Patient able to AB duct the left upper extremity past 90. Patient was able to AB duct the right upper extremity to 45 and this exacerbated pain. Flexion extension of the bilateral elbows is grossly normal. No wrist drop bilaterally. Skin: No petechia, no purpura. No lesions on the palms or the soles of the feet. No maculopapular rash. Multiple areas of ecchymosis over the bilateral lower extremities. NEURO: Patient was alert, awake, orientated x3.No facial droop. Gait observed and normal with no ataxia.Speech had regular rate and rhythm. No focal neurological deficits. Result Diagram: 07/26/16212407/26/162124 Results 24 hrs Laboratory Tests Test 07/26/16 21:25 07/26/16 23:15 White Blood Count 6.910^3/ul Red Blood Count 2.8010^6/ul Hemoglobin 9.3g/dl Hematocrit 28.3% Mean Corpuscular Volume 101.1fl Mean Corpuscular Hemoglobin 33.2pg Mean Corpuscular Hemoglobin Concent 32.9g/dl Red Cell Distribution Width 16.0% Platelet Count 51747^3/UL Mean Platelet Volume 11.4fl Neutrophils % 59.2% Lymphocytes % 12.0% Monocytes % 17.4% Eosinophils % 0.1% Basophils % 0.4% Nucleated Red Blood Cells % 0.0/100WBC Neutrophils # 4.110^3/ul Lymphocytes # 0.810^3/ul Monocytes # 1.210^3/ul Eosinophils # 0.010^3/ul Basophils # 0.010^3/ul Nucleated Red Blood Cells # 0.010^3/ul Prothrombin Time 15.4Sec Prothrombin Time Ratio 1.2 INR International Normalized Ratio 1.21 Activated Partial Thromboplast Time 39.5Sec Sodium Level 137mmol/L Potassium Level 6.2mmol/L Chloride Level 100mmol/L Carbon Dioxide Level 17mmol/L Anion Gap 26 Blood Urea Nitrogen 108mg/dl Creatinine 7.84mg/dl Glucose Level 160mg/dl Lactic Acid Level 1.3mmol/L Calcium Level 8.2mg/dl Total Bilirubin 0.3mg/dl Direct Bilirubin 0.00mg/dl Indirect Bilirubin 0.3mg/dl Aspartate Amino Transf (AST/SGOT) 23IU/L Alanine Aminotransferase (ALT/SGPT) 17IU/L Alkaline Phosphatase 79IU/L Troponin I 0.012ng/ml Total Protein 7.1g/dl Albumin 3.9g/dl Globulin 3.20g/dl Albumin/Globulin Ratio 1.21 Amylase Level 60U/L Lipase 28U/L Urine Color LT. YELLOW Urine Clarity SL HAZY Urine pH 5.5 Urine Specific Maud >=1.030 Urine Ketones NEGATIVE Urine Nitrite POSITIVE Urine Bilirubin NEGATIVE Urine Urobilinogen 0.2 E.U./dL Urine Leukocyte Esterase TRACE Urine Microscopic RBC Pending Urine Microscopic WBC Pending Urine Hemoglobin 2+ Urine Glucose NEGATIVE% Urine Total Protein 2+ Current Medications Medications (Trade) Dose Ordered Sig/Sanam Route PRN Reason Start Time Stop Time Status Last Admin Dose Admin Sodium Chloride (NS) 1,860 ml BOLUS OVER 2 HOURS STAT IV* 07/26/16 20:47 07/26/16 20:48 Cancel Furosemide (Lasix) 40 mg ONCE STAT IV 07/26/16 22:15 07/26/16 22:16 DC 07/26/16 22:36 Sodium Polystyrene Sulfonate (Kayexalate) 30 gm ONCE STAT PO 07/26/16 22:15 07/26/16 22:16 DC 07/26/16 22:37 Albuterol (Proventil 0.5% (Neb)) 15 mg ONCE STAT INH 07/26/16 22:15 07/26/16 22:16 DC 07/26/16 23:07 Sodium Bicarbonate (Na Bicarb 8.4% Syg) 50 ml ONCE STAT IV 07/26/16 22:15 07/26/16 22:16 DC 07/26/16 22:36 Calcium Chloride (Ca Chloride 10% Syg) 1,000 mg ONCE STAT IV 07/26/16 22:15 07/26/16 22:16 DC 07/26/16 22:36 Ondansetron HCl (Zofran Inj) 4 mg ER BRIDGE PRN IV NAUSEA AND/OR VOMITING 07/27/16 00:00 07/27/16 23:59 Acetaminophen (Tylenol Tab) 650 mg ER BRIDGE PRN PO MILD PAIN/FEVER 07/27/16 00:00 07/27/16 23:59 Procedures/MDM This patient presented to the emergency department generalized myalgias. The patient was placed in a director of music continuous pulse oximetry and IV access was established by nursing staff. 1 view chest radiograph for and reviewed by myself indicated the following: Mild interstitial edema and left base opacity likely due to pleural effusion and atelectasis. 12 Lead EKG tracing ordered and reviewed by myself showed: Sinus bradycardia cardia 57 bpm and no arrhythmia. [place] interval normal. QRS duration normal. No ST segment elevation No ST segment depression. No changes consistent with acute ischemia. Bilateral three-view radiographs of the left and right knee were ordered reviewed by myself and reviewed by the radiologist. There is no evidence of acute fractures. Also obtained a humerus radiograph, 2 views of the right upper extremity that was reviewed by myself the radiologist and also indicate there is no acute fractures. The patient was hyperkalemic with a potassium of 6.2. The patient was treated for hyperkalemia given an amp of calcium chloride, an amp of bicarb, IV Lasix and Kayexalate. I spoke with the patient's take up operator who is taking call for Dr. Daly and he will arrange for emergent hemodialysis first thing in the morning as the patient's BUN was 100 and and 8 creatinine was 7.84.. The patient was in no respiratory distress. The patient did not require supplemental oxygen. The patient will be admitted in serious condition to the telemetry service under the care of Dr. Velazquez with anticipated stay of greater than 2 midnights Critical Care: Time: 40 minutes Treatments/Evaluations: Close monitoring and treatment of unstable vital signs, cardiorespiratory, and neurologic status, while maintaining tight balance of fluid, respiratory, and cardiac interventions. Time does not include performing any of the above billable procedures. Departure Diagnosis: Primary Impression: Acute kidney failure Qualified Code: N17.9 - Acute renal failure, unspecified acute renal failure type Additional Impressions: Hyperkalemia Left knee injury Qualified Code: S89.92XA - Left knee injury, initial encounter Right knee injury Qualified Code: S89.91XA - Right knee injury, initial encounter Frequent falls Condition: Serious MALU CHAPPELL July 27, 2016 00:22
[2016-07-27 00:28] LABS: BACTERIA,URINE MANY; SQUAMOUS EPITHELIAL CELL,UR MODERATE
[2016-07-27] MEDS ORDERED: ONDANSETRON 4 MG INJ IV PRN ×2 (04:30)
[2016-07-27] MEDS ORDERED: ACETAMINOPHEN 325 MG TAB PO PRN ×2 (04:30)
[2016-07-27] MEDS: HYDROCODONE/APAP (5/325) TAB PO PRN ×2 (06:27→12:13)
[2016-07-27] MEDS: LEVOTHYROXINE 100 MCG TAB PO SCH (06:59)
--- NOTE | 2016-07-27 07:32 | HP ---
DATE OF ADMISSION: 07/26/2016 TIME SEEN: 2300 CHIEF COMPLAINT: Generalized weakness and frequent falls. HISTORY OF PRESENT ILLNESS: The patient is an 89-year-old female with a history of end-stage renal disease on dialysis, hypertension, hypothyroidism, anemia of chronic disease who presented to the emergency department complaining of right arm/shoulder pain, generalized weakness and frequent falls. She stated as a result of that, she actually missed the last 3 sessions of dialysis. The patient also reported some shortness of breath. It seems like her knee is causing her difficulty with ambulation, and as a result, she has had multiple falls. Denied hitting her head or loss of consciousness. She is unable to lift her arm because of pain. Denied trauma, chest pain, nausea, vomiting, fever, or chills. She said she used to get steroid injections for her knee Osteoarthritis, but last time was years ago. PATIENT IS DNR/DNI. When she presented to the ER, blood pressure was 172/75, heart rate 59, respiratory rate 19, temperature 97.9, oxygen saturation 97%. Laboratory value shows a potassium of 6.2, bicarbonate 17, BUN 108, creatinine almost 8, hemoglobin 9.3. Bilateral knee x-ray shows severe osteoarthritic change on the left and moderate change on the right knee. Chest x-ray shows mild interstitial edema and left base opacity likely due to pleural effusion and atelectasis. The patient's meat specialist is Dr. Daly, and he is aware of patient's presentation with a plan for dialysis in the morning. The patient was admitted here a month ago after she presented with a chief complaint of diarrhea. At that time, she also missed dialysis session. REVIEW OF SYSTEMS: Negative except as mentioned in HPI. PAST MEDICAL HISTORY: As per HPI. PAST SURGICAL HISTORY: Hysterectomy. SOCIAL HISTORY: She had a remote history of smoking. Otherwise, no alcohol or illicit drug use. ALLERGIES: SULFA. HOME MEDICATIONS: 1. Coreg. 2. Hydralazine. 3. Imdur. 4. Nifedipine. 5. Aldactone. 6. Calcium. 7. Chlorthalidone. 8. Synthroid. PHYSICAL EXAMINATION: VITAL SIGNS: Blood pressure 178/65, heart rate 62, respiratory rate 20, temperature 97.9, oxygen saturation 97% on 2 L. GENERAL: The patient is lying in bed, initially sleepy, but arousable. Looks slightly anxious. HEENT: No obvious head deformity. Pupils are reactive to light. Extraocular muscles intact. CARDIOVASCULAR: Regular rate and rhythm. LUNGS: Decreased breath sounds at the bases. ABDOMEN: Soft, nontender, nondistended. EXTREMITIES: Right arm/shoulder pain. ROM severely limited due to pain. Bilateral lower extremity pitting edema. LABORATORY: Pertinent positives as mentioned in the HPI. IMAGING: Knee x-ray and chest x-ray results as mentioned in the HPI. Right humerus x-ray shows no fracture or dislocation, but shows extensive degenerative change about the right AC joint. IMPRESSION: 1. Frequent falls, likely secondary to her severe knee osteoarthritis. 2. Right arm/shoulder Pain 3. End-stage renal disease, on dialysis, patient missed 3 sessions. 4. Hypertension, blood pressure not within goal. 5. Hyperkalemia, secondary to missed dialysis. 6. Anion gap metabolic acidosis, manifestation of her renal disease. 7. Hypothyroidism. 8. Anemia of chronic disease. PLAN: Right arm/shoulder pain and the resultant severely limited ROM is most likely a result of arthritis. Patient denied trauma.The patient's frequent falls are a result of her severe knee osteoarthritis. We will have her be evaluated by physical therapist. She will benefit from either an ortho or rheumatology evaluation for a steroid injection. Additional imaging shoul be considered, especially for right upper ext/shoulder. We will also provide pain medication. As far as her dialysis need is concerned, her meat specialist, Dr. Daly, is aware and she will be dialyzed in the morning. In the meantime, we will continue her home medications with adjustment as needed. She had been given Kayexalate, calcium, albuterol for correction of her hyperkalemia. Will follow up her next lab. Further workup and management will be per clinical course. Dictated By: ASHOK GUERRA/FERNANDO Conf#: [id number] DID#: [id number] WILIAN
[2016-07-27] MEDS: CALCIUM ACETATE 667 MG CAP PO SCH ×3 (07:55→17:00)
[2016-07-27] MEDS ORDERED: EPOETIN 3000 UNITS/1 ML INJ (ESRD) SC SCH (08:00)
[2016-07-27 08:59] LABS: ADD SCAN DIFF NO
[2016-07-27] MEDS: ISOSORBIDE MONONITRATE(SR)30 MG TAB PO SCH (09:00)
[2016-07-27] MEDS: SPIRONOLACTONE 25 MG TAB PO SCH ×2 (09:00→20:55)
[2016-07-27] MEDS: NIFEdipine (XL) 90 MG TAB PO SCH (09:00)
[2016-07-27] MEDS: CHLORTHALIDONE 25 MG TAB PO SCH (09:00)
[2016-07-27 09:13] LABS: ALBUMIN 3.9 g/dl (3.3-4.9); ALBUMIN/GLOBULIN RATIO 1.3; BILIRUBIN,INDIRECT 0.2 mg/dl (0-1.1); BILIRUBIN,TOTAL 0.2 mg/dl (0.2-1.3); CALCIUM 9.3 mg/dl (8.4-10.2); CREATININE 7.72 mg/dl (0.44-1.00); MAGNESIUM 2.2 mg/dl (1.7-2.5); PHOSPHORUS 10.5 mg/dl (2.5-4.9); TOTAL PROTEIN 6.9 g/dl (6.1-8.1)
[2016-07-27 09:19] LABS: POTASSIUM 6.3 mmol/L (3.5-5.1)
[2016-07-27 09:30] LABS: ABNORMAL IP MESSAGE 1; BASOPHILS % 0.4 % (0.0-2.0); EOSINOPHILS % 0.1 % (0.0-7.0); HEMATOCRIT 29.7 % (37.0-47.0); LYMPHOCYTES # 1.2 10^3/ul (0.8-2.9); LYMPHOCYTES % 17.8 % (15.0-51.0); MEAN CORPUSCULAR HEMOGLOBIN 31.8 pg (29.0-33.0); MEAN CORPUSCULAR HGB CONC 31.3 g/dl (32.0-37.0); MEAN CORPUSCULAR VOLUME 101.7 fl (82.0-101.0); MEAN PLATELET VOLUME 10.6 fl (7.4-10.4); MONOCYTE # 1.5 10^3/ul (0.3-0.9); MONOCYTES % 21.5 % (0.0-11.0); NEUTROPHIL # 3.6 10^3/ul (1.6-7.5); NEUTROPHILS % 51.5 % (39.0-77.0); PLATELET COUNT 159 10^3/UL (140-415); RED BLOOD COUNT 2.92 10^6/ul (4.20-5.40)
[2016-07-27 09:33] LABS: HEMOGLOBIN 9.3 g/dl (12.0-16.0)
--- NOTE | 2016-07-27 13:24 | PN ---
Date/Time of Note Date/Time of Note DATE: 07/27/16 TIME: 13:18 Assessment/Plan VTE Prophylaxis VTE Prophylaxis Intervention: heparin Lines/Catheters IV [facility] Saline Lock Assessment/Plan Chief Complaint/Hosp Course IMPRESSION: 1. Frequent falls, likely secondary to her severe knee osteoarthritis. Orthopedic surgeon has been consulted, obtain PT OT eval and treat She will benefit from either an ortho or rheumatology evaluation for outpatient steroid injection. 2. End-stage renal disease, on dialysis, patient missed 3 sessions. Status post hemodialysis this a.m. 3. Hypertension, blood pressure Better controlled status post hemodialysis 4. Hyperkalemia, secondary to missed dialysis. Follow-up electrolytes in a.m., status post hemodialysis 5. Anion gap metabolic acidosis, manifestation of her renal disease. 6. Hypothyroidism. Continue levothyroxine 7. Anemia of chronic disease. Continue to monitor Further workup and management will be per clinical course. Problems: Subjective 24 Hr Interval Summary Free Text/Dictation Patient denies any chest pain Minimal shortness of breath Denies of any abdominal pain, nausea vomiting Complains of having bilateral knee pain and right shoulder pain Exam/Review of Systems Vital Signs Vitals Vital Signs Date Time Temp Pulse Resp B/P Pulse Ox O2 Delivery O2 Flow Rate FiO2 07/27/16 12:16 79 07/27/16 11:31 98.1 16 178/53 96 07/27/16 08:15 2.0 07/27/16 01:45 Nasal Cannula Intake and Output 07/26/16 07/26/16 07/27/16 14:59 22:59 06:59 Intake Total 350 ml Balance 350 ml Exam General: The patient is well-developed, Not in acute distress. HEENT: Atraumatic, normocephalic. The pupils are equal and round . Neck: Supple with full range of motion. Chest: Normal, dialysis catheter right upper chest area Lungs: Clear to auscultation bilaterally Heart: Normal S1-S2, Regular rhythm and rate. Abdomen: Soft , nontender, nondistended , bowel sounds are present. Extremities: Bilateral knee swelling, no edema no cyanosis Neurologic: Normal mental status,The patient is awake, alert and oriented . Results Result Diagram: 07/27/16 0300 07/27/16 0300 Results 24 hrs Laboratory Tests Test 07/26/16 21:25 07/26/16 23:15 07/26/16 23:58 07/27/16 03:00 White Blood Count 6.9 # 7.0 Red Blood Count 2.80 #L 2.92 L Hemoglobin 9.3 L 9.3 L Hematocrit 28.3 #L 29.7 L Mean Corpuscular Volume 101.1 H 101.7 H Mean Corpuscular Hemoglobin 33.2 #H 31.8 Mean Corpuscular Hemoglobin Concent 32.9 # 31.3 L Red Cell Distribution Width 16.0 #H 16.0 H Platelet Count 160 159 Mean Platelet Volume 11.4 H 10.6 H Neutrophils % 59.2 51.5 Lymphocytes % 12.0 L 17.8 Monocytes % 17.4 H 21.5 H Eosinophils % 0.1 0.1 Basophils % 0.4 0.4 Nucleated Red Blood Cells % 0.0 0.0 Neutrophils # 4.1 3.6 Lymphocytes # 0.8 1.2 Monocytes # 1.2 H 1.5 H Eosinophils # 0.0 0.0 Basophils # 0.0 0.0 Nucleated Red Blood Cells # 0.0 0.0 Prothrombin Time 15.4 H Prothrombin Time Ratio 1.2 INR International Normalized Ratio 1.21 Activated Partial Thromboplast Time 39.5 H Sodium Level 137 139 Potassium Level 6.2 *H 6.3 *H Chloride Level 100 104 Carbon Dioxide Level 17 L 17 L Anion Gap 26 H 24 H Blood Urea Nitrogen 108 H 105 H Creatinine 7.84 H 7.72 H Glucose Level 160 92 # Lactic Acid Level 1.3 0.9 0.8 Calcium Level 8.2 L 9.3 Total Bilirubin 0.3 0.2 Direct Bilirubin 0.00 0.00 Indirect Bilirubin 0.3 0.2 Aspartate Amino Transf (AST/SGOT) 23 23 Alanine Aminotransferase (ALT/SGPT) 17 23 Alkaline Phosphatase 79 82 Troponin I 0.012 Total Protein 7.1 6.9 Albumin 3.9 3.9 Globulin 3.20 3.00 Albumin/Globulin Ratio 1.21 1.30 Amylase Level 60 Lipase 28 Urine Color LT. YELLOW Urine Clarity SL HAZY Urine pH 5.5 Urine Specific [place] >=1.030 H Urine Ketones NEGATIVE Urine Nitrite POSITIVE H Urine Bilirubin NEGATIVE Urine Urobilinogen 0.2 E.U./dL Urine Leukocyte Esterase TRACE H Urine Microscopic RBC 5-10 Urine Microscopic WBC 0-2 Urine Squamous Epithelial Cells MODERATE Urine Bacteria MANY Urine Hemoglobin 2+ H Urine Glucose NEGATIVE Urine Total Protein 2+ H Phosphorus Level 10.5 H Magnesium Level 2.2 Medications Medications Current Medications Carvedilol (Coreg) 12.5 mg BID PO ; Start 07/27/16 at 09:00 Chlorthalidone (Hygroton) 25 mg DAILY PO ; Start 07/27/16 at 09:00 Hydralazine HCl (Apresoline) 25 mg Q8H PRN PO ELEVATED BLOOD PRESSURE; Start at 04:00 Isosorbide Mononitrate (Imdur) 30 mg DAILY PO ; Start 07/27/16 at 09:00 Nifedipine (Procardia Xl) 90 mg DAILY PO ; Start 07/27/16 at 09:00 Spironolactone (Aldactone) 25 mg BID PO ; Start 07/27/16 at 09:00 Ondansetron HCl (Zofran Inj) 4 mg Q6H PRN IV NAUSEA AND/OR VOMITING; Start 01/03 at 04:30 Acetaminophen (Tylenol Tab) 650 mg Q6H PRN PO PAIN AND OR ELEVATED TEMP; Start 07/27/16 at 04:30 Acetaminophen/ Hydrocodone Bitart ([place] (5/325)) 1 tab Q6H PRN PO PAIN LEVEL 1 -5 Last administered on 07/27/16t 12:13; Admin Dose 1 TAB; Start 07/27/16 at 06: 17 Epoetin Robi (Epogen (Esrd)) 6,000 units ONCE SC ; Start 07/27/16 at 08:00; Stop 07/27/16 at 18:00 AMI LIRIANO MD July 27, 2016 13:24
[2016-07-27 14:27] LABS: CALCIUM 8.9 mg/dl (8.4-10.2)
[2016-07-27 14:45] LABS: CREATININE 3.66 mg/dl (0.44-1.00); POTASSIUM 3.4 mmol/L (3.5-5.1)
[2016-07-27] MEDS: morphine 2 MG INJ IV PRN ×2 (15:09→20:55)
[2016-07-27] MEDS ORDERED: VANCOMYCIN IV PER PHARMACY XX SCH (20:00)
--- NOTE | 2016-07-27 20:33 | CONS ---
Date/Time of Note Date/Time of Note DATE: 07/27/16 TIME: 20:21 Consult Date/Type/Reason Admit Date/Time July 26, 2016 at 23:39 Initial Consult Date 07/27/2016 Reason for Consultation hyperkalemia, esrd, hypertension Subjective having multiple falls at home due to knee s giving way, shortness of breath Objective comfortable lying inbed, babita in rt subclavian area, chest clear cvs, soft systolic em heard in parasternal area abdomen soft supple, le, no edema multiple echymosis with normal platelet count Vital Signs Date Time Temp Pulse Resp B/P Pulse Ox O2 Delivery O2 Flow Rate FiO2 07/27/16 20:07 84 07/27/16 19:42 98.4 18 161/88 93 07/27/16 08:15 2.0 07/27/16 01:45 Nasal Cannula Intake and Output 07/26/16 07/26/16 07/27/16 15:00 23:00 07:00 Intake Total 350 ml Balance 350 ml Exam chest clear,, soft wild in lt parasternal area abdomen soft supple le no edema Results/Medications Result Diagram: 07/27/16 0300 07/27/16 1355 Results 24 hrs Laboratory Tests Test 07/26/16 21:25 07/26/16 23:15 07/26/16 23:58 07/27/16 03:00 White Blood Count 6.9 # 7.0 Red Blood Count 2.80 #L 2.92 L Hemoglobin 9.3 L 9.3 L Hematocrit 28.3 #L 29.7 L Mean Corpuscular Volume 101.1 H 101.7 H Mean Corpuscular Hemoglobin 33.2 #H 31.8 Mean Corpuscular Hemoglobin Concent 32.9 # 31.3 L Red Cell Distribution Width 16.0 #H 16.0 H Platelet Count 160 159 Mean Platelet Volume 11.4 H 10.6 H Neutrophils % 59.2 51.5 Lymphocytes % 12.0 L 17.8 Monocytes % 17.4 H 21.5 H Eosinophils % 0.1 0.1 Basophils % 0.4 0.4 Nucleated Red Blood Cells % 0.0 0.0 Neutrophils # 4.1 3.6 Lymphocytes # 0.8 1.2 Monocytes # 1.2 H 1.5 H Eosinophils # 0.0 0.0 Basophils # 0.0 0.0 Nucleated Red Blood Cells # 0.0 0.0 Prothrombin Time 15.4 H Prothrombin Time Ratio 1.2 INR International Normalized Ratio 1.21 Activated Partial Thromboplast Time 39.5 H Sodium Level 137 139 Potassium Level 6.2 *H 6.3 *H Chloride Level 100 104 Carbon Dioxide Level 17 L 17 L Anion Gap 26 H 24 H Blood Urea Nitrogen 108 H 105 H Creatinine 7.84 H 7.72 H Glucose Level 160 92 # Lactic Acid Level 1.3 0.9 0.8 Calcium Level 8.2 L 9.3 Total Bilirubin 0.3 0.2 Direct Bilirubin 0.00 0.00 Indirect Bilirubin 0.3 0.2 Aspartate Amino Transf (AST/SGOT) 23 23 Alanine Aminotransferase (ALT/SGPT) 17 23 Alkaline Phosphatase 79 82 Troponin I 0.012 Total Protein 7.1 6.9 Albumin 3.9 3.9 Globulin 3.20 3.00 Albumin/Globulin Ratio 1.21 1.30 Amylase Level 60 Lipase 28 Urine Color LT. YELLOW Urine Clarity SL HAZY Urine pH 5.5 Urine Specific [place] Level >=1.030 H Urine Ketones NEGATIVE Urine Nitrite POSITIVE H Urine Bilirubin NEGATIVE Urine Urobilinogen 0.2 E.U./dL Urine Leukocyte Esterase TRACE H Urine Microscopic RBC 5-10 Urine Microscopic WBC 0-2 Urine Squamous Epithelial Cells MODERATE Urine Bacteria MANY Urine Hemoglobin 2+ H Urine Glucose NEGATIVE Urine Total Protein 2+ H Phosphorus Level 10.5 H Magnesium Level 2.2 Test 07/27/16 13:55 Sodium Level 142 Potassium Level 3.4 #L Chloride Level 99 Carbon Dioxide Level 25 Anion Gap 21 H Blood Urea Nitrogen 40 #H Creatinine 3.66 #H Glucose Level 145 # Calcium Level 8.9 Medications Current Medications Carvedilol (Coreg) 12.5 mg BID PO ; Start 07/27/16 at 09:00 Chlorthalidone (Hygroton) 25 mg DAILY PO ; Start 07/27/16 at 09:00 Hydralazine HCl (Apresoline) 25 mg Q8H PRN PO ELEVATED BLOOD PRESSURE Last administered on 07/27/16t 16:00; Admin Dose 25 MG; Start 07/27/16 at 04:00 Isosorbide Mononitrate (Imdur) 30 mg DAILY PO ; Start 07/27/16 at 09:00 Nifedipine (Procardia Xl) 90 mg DAILY PO ; Start 07/27/16 at 09:00 Spironolactone (Aldactone) 25 mg BID PO ; Start 07/27/16 at 09:00 Ondansetron HCl (Zofran Inj) 4 mg Q6H PRN IV NAUSEA AND/OR VOMITING; Start 01/03 at 04:30 Acetaminophen (Tylenol Tab) 650 mg Q6H PRN PO PAIN AND OR ELEVATED TEMP; Start 07/27/16 at 04:30 Acetaminophen/ Hydrocodone Bitart ([place] (5/325)) 1 tab Q6H PRN PO PAIN LEVEL 1 -5 Last administered on 07/27/16t 12:13; Admin Dose 1 TAB; Start 07/27/16 at 06: 17 Morphine Sulfate 1 mg 1 mg Q4H PRN IV PAIN LEVEL 4-6 Last administered on 15:09; Admin Dose 1 MG; Start 07/27/16 at 14:50 Vancomycin HCl/ Sodium Chloride (Vancocin/NS) 250 ml @ 83.333 mls/ hr ONCE IVPB ; Start 07/27/16 at 21:00; Stop 07/27/16 at 23:00 Assessment/Plan Chief Complaint/Hosp Course esrd, needs regular hd but pt is noncompliant and has multiple hospitaistions hypertension uncontrolled hyperkalemia, missed hd rx anemia of crf h/o hysterectomy bilateral knee oa severe resulting in multiple falls , no fractures metabolic acidosis due to crf hd, epogen, uf on hd to improve fluid overload, rehab measures and physical therapy and walker training Problems: RAMIREZ RAE MD July 27, 2016 20:32
[2016-07-27] MEDS ORDERED: VANCOMYCIN 1.25 GM in SOD CHLORIDE 0.9% 250 ML IVPB SCH (21:00)
--- NOTE | 2016-07-27 21:16 | CONS ---
DATE OF ADMISSION: 07/26/2016 DATE OF CONSULTATION: HISTORY OF PRESENT ILLNESS: Thank you for asking me to see this patient in renal consultation. The patient is an 89-year-old female with history of end-stage renal disease, hypertension, anemia of c hronic kidney disease, hospitalized from the emergency room following multiple falls at home. The p atient complained of significant pain in her right humerus and both the knees and had multiple erosi ons on her skin. The patient was hospitalized because of shortness of breath. The patient has been noncompliant with dialysis treatment and has not gone for the last 3 treatments. MEDICATIONS: Reviewed, which include: 1. Coreg. 2. Hydralazine. 3. Imdur. 4. Nifedipine. 5. Aldactone. 6. Calcium. 7. Synthroid. SOCIAL HISTORY: Smokes: None. Drugs: None. Alcohol: None. The patient has been having multipl e falls at home. Has had injections for significant osteoarthritis, but patient does have significa nt issues with both the knees and is having multiple falls. The patient does need rehab evaluation and also needs to learn to use a walker to avoid this complication. REVIEW OF SYSTEMS: No headaches, no visual complaints. Appetite fair. Bowels are otherwise normal . The patient has had hysterectomy for menorrhagia. PHYSICAL EXAMINATION: VITAL SIGNS: At present, blood pressure 161/88, temperature 98.4, pulse 84, respirations 18, satura tion 93%. NECK: Jugular pressure normal. No significant lymphadenopathy, no thyromegaly. Carotids are well palpable on either side. CHEST: ____ No appreciable rhonchi, vesicular sounds were heard. CARDIOVASCULAR: [place] in 6th ____ midclavicular line. Soft systolic ejection murmur left parasterna l area. ABDOMEN: Does not show any organomegaly. Bowel sounds are well heard. LOWER EXTREMITIES: Does not show any edema. The patient does have multiple ecchymotic areas, both in upper extremities as well as lower extremities. LABORATORY DATA: Show an initial WBC count of 6.9, hemoglobin of 9.3, MCV of 101, platelet count of 160,000. Her sodium 139, potassium 6.3, chloride 104, CO2 of 17, BUN 105, creatinine 7. Phosphoru s 10.5. Calcium 9.3. Albumin 3.9. Chest x-ray exam showed mild congestive heart failure and mild pleural effusion. Bilateral knee x-rays do not show any fractures. Right humerus does not show any evidence of fracture, though there are significant osteoarthritic changes and also osteoporosis. IMPRESSION: 1. End-stage renal disease. 2. Hyperkalemia. 3. Fluid overload. 4. Hypertension, uncontrolled. 5. Previous history of hysterectomy. 6. Bilateral severe osteoarthritis, knees. 7. Severe osteoarthritis, right shoulder. PLAN: 1. The patient was dialyzed this morning on 2K potassium bath. Epogen 6000 units IV given. The pa bharath will be given additional hemodialysis in the morning. 2. The patient is continued on her antihypertensive medications, which should help in improvement o f blood pressure, and also removal of salt and fluid should help with her blood pressure control. 3. After dialysis in the morning, patient could be ready to go to a lower level of care where physi kavon therapy, rehabilitation care, and/or use of walker could be discussed. Thank you very much for asking me to see the patient in consultation. Sincerely yours, Dictated By: RAMIREZ RAE MD KG/FERNANDO Conf#: [id number] DID#: [id number] CC: ASHOK DE SANTIAGO MD;*EndCC*
[2016-07-28] VITALS (19 sets, daily range): BP systolic 86–215; BP diastolic 44–92; PULSE 61–87; RESP 16–20
[2016-07-28] MEDS ORDERED: LORAZEPAM 2 MG INJ IV PRN (05:30)
[2016-07-28 07:03] LABS: ADD SCAN DIFF NO
[2016-07-28 07:13] LABS: ABNORMAL IP MESSAGE 1; HEMOGLOBIN 9.8 g/dl (12.0-16.0); RED CELL DISTRIBUTION WIDTH 16.3 % (11.5-14.5)
[2016-07-28 07:32] LABS: CALCIUM 8.2 mg/dl (8.4-10.2); CREATININE 4.29 mg/dl (0.44-1.00); MAGNESIUM 1.9 mg/dl (1.7-2.5); POTASSIUM 3.5 mmol/L (3.5-5.1)
[2016-07-28] MEDS: LEVOTHYROXINE 100 MCG TAB PO SCH (07:49)
[2016-07-28] MEDS: CALCIUM ACETATE 667 MG CAP PO SCH ×3 (07:49→17:20)
[2016-07-28] MEDS ORDERED: HEPARIN 1000 UNITS/ML 10 ML INJ CATHETER ONE (09:00)
[2016-07-28 09:27] LABS: WHITE BLOOD COUNT 8.8 10^3/ul (4.8-10.8)
[2016-07-28 09:28] LABS: BASOPHILS % 0.1 % (0.0-2.0); HEMATOCRIT 31.2 % (37.0-47.0); LYMPHOCYTES % 12.7 % (15.0-51.0); MEAN CORPUSCULAR HEMOGLOBIN 32.6 pg (29.0-33.0); MEAN CORPUSCULAR HGB CONC 31.4 g/dl (32.0-37.0); MEAN CORPUSCULAR VOLUME 103.7 fl (82.0-101.0); MEAN PLATELET VOLUME 11.2 fl (7.4-10.4); MONOCYTES % 29.4 % (0.0-11.0); NEUTROPHILS % 50.2 % (39.0-77.0); PLATELET COUNT 143 10^3/UL (140-415); RED BLOOD COUNT 3.01 10^6/ul (4.20-5.40)
[2016-07-28 09:29] LABS: LYMPHOCYTES # 1.1 10^3/ul (0.8-2.9); MONOCYTE # 2.6 10^3/ul (0.3-0.9); NEUTROPHIL # 4.4 10^3/ul (1.6-7.5); NUCLEATED RED BLOOD CELLS% 0.3 /100WBC (0.0-0.0)
--- NOTE | 2016-07-28 09:58 | PN ---
Date/Time of Note Date/Time of Note DATE: 07/28/16 TIME: 09:54 Assessment/Plan VTE Prophylaxis VTE Prophylaxis Intervention: heparin Lines/Catheters IV [facility]from [facility] Saline Lock Assessment/Plan Chief Complaint/Hosp Course IMPRESSION: 1. Frequent falls, likely secondary to her severe knee osteoarthritis. Orthopedic surgeon has been consulted, obtain PT OT eval and treat She will benefit from either an ortho or rheumatology evaluation for outpatient steroid injection. 2. End-stage renal disease, on dialysis, patient missed 3 sessions. Status post hemodialysis on 07/27 and 07/28/2016. 3. Hypertension, blood pressure Better controlled status post hemodialysis Continue medical management 4. Hyperkalemia, secondary to missed dialysis. Follow-up electrolytes in a.m., status post hemodialysis Improved 5. Anion gap metabolic acidosis, manifestation of her renal disease. 6. Hypothyroidism. Continue levothyroxine 7. Anemia of chronic disease. Continue to monitor Further workup and management will be per clinical course. DO NOT give any sedating medication/benzodiazepine such as Ativan or Xanax if patient becomes agitated Problems: Subjective 24 Hr Interval Summary Free Text/Dictation Patient is sleepy and groggy secondary to Ativan which she received last night During examination patient is obtaining her dialysis In soft restraint Exam/Review of Systems Vital Signs Vitals Vital Signs Date Time Temp Pulse Resp B/P Pulse Ox O2 Delivery O2 Flow Rate FiO2 07/28/16 09:00 66 07/28/16 07:08 98.0 20 212/70 98 07/27/16 20:00 2.0 07/27/16 01:45 Nasal Cannula Intake and Output 07/27/16 07/27/16 07/28/16 15:00 23:00 07:00 Intake Total 400 ml 566.666 ml 323.34 ml Output Total 3400 ml 100 ml Balance -3000 ml 466.666 ml 323.34 ml Exam General: The patient is well-developed, Not in acute distress. HEENT: Atraumatic, normocephalic. The pupils are equal and round . Neck: Supple Chest: Normal expansion of the thorax during inspiration Lungs: Clear to auscultation bilaterally Heart: Normal S1-S2, Regular rhythm and rate. Abdomen: Soft , nontender, nondistended , bowel sounds are present. Extremities: Normal to inspection, no edema no cyanosis Neurologic: Arousable Results Result Diagram: 5/11/17 0600 07/28/16 0600 Results 24 hrs Laboratory Tests Test 07/27/16 13:55 07/28/16 06:00 Sodium Level 142 138 Potassium Level 3.4 #L 3.5 Chloride Level 99 102 Carbon Dioxide Level 25 26 Anion Gap 21 H 14 # Blood Urea Nitrogen 40 #H 46 H Creatinine 3.66 #H 4.29 H Glucose Level 145 # 93 # Calcium Level 8.9 8.2 L White Blood Count 8.8 # Red Blood Count 3.01 L Hemoglobin 9.8 L Hematocrit 31.2 L Mean Corpuscular Volume 103.7 H Mean Corpuscular Hemoglobin 32.6 Mean Corpuscular Hemoglobin Concent 31.4 L Red Cell Distribution Width 16.3 H Platelet Count 143 Mean Platelet Volume 11.2 H Neutrophils % 50.2 Lymphocytes % 12.7 L Monocytes % 29.4 H Eosinophils % 0.0 Basophils % 0.1 Nucleated Red Blood Cells % 0.3 H Neutrophils # 4.4 Lymphocytes # 1.1 Monocytes # 2.6 H Eosinophils # 0.0 Basophils # 0.0 Nucleated Red Blood Cells # 0.0 Magnesium Level 1.9 Medications Medications Current Medications Carvedilol (Coreg) 12.5 mg BID PO Last administered on 07/27/16 21:14; Admin Dose 12.5 MG; Start 07/27/16 at 09:00 Chlorthalidone (Hygroton) 25 mg DAILY PO ; Start 07/27/16 at 09:00 Hydralazine HCl (Apresoline) 25 mg Q8H PRN PO ELEVATED BLOOD PRESSURE Last administered on 07/27/16 16:00; Admin Dose 25 MG; Start 07/27/16 at 04:00 Isosorbide Mononitrate (Imdur) 30 mg DAILY PO ; Start 07/27/16 at 09:00 Nifedipine (Procardia Xl) 90 mg DAILY PO ; Start 07/27/16 at 09:00 Spironolactone (Aldactone) 25 mg BID PO Last administered on 07/27/16 20:55; Admin Dose 25 MG; Start 07/27/16 at 09:00 Ondansetron HCl (Zofran Inj) 4 mg Q6H PRN IV NAUSEA AND/OR VOMITING; Start 01/03 at 04:30 Acetaminophen (Tylenol Tab) 650 mg Q6H PRN PO PAIN AND OR ELEVATED TEMP; Start 07/27/16 at 04:30 Acetaminophen/ Hydrocodone Bitart ([place] (5/325)) 1 tab Q6H PRN PO PAIN LEVEL 1 -5 Last administered on 07/27/16 12:13; Admin Dose 1 TAB; Start 07/27/16 at 06: 17 Morphine Sulfate (morphine) 1 mg Q4H PRN IV PAIN LEVEL 4-6 Last administered on 07/27/16 20:55; Admin Dose 1 MG; Start 07/27/16 at 14:50 Lorazepam (Ativan) 1 mg Q3H PRN IV AGITATION Last administered on 07/28/16 05: 34; Admin Dose 1 MG; Start 07/28/16 at 05:30 AMI LIRIANO MD July 28, 2016 09:58
[2016-07-28] MEDS ORDERED: hydrALAzine 20 MG INJ IV ONE (10:00)
[2016-07-28] MEDS: ISOSORBIDE MONONITRATE(SR)30 MG TAB PO SCH (11:03)
[2016-07-28] MEDS: CHLORTHALIDONE 25 MG TAB PO SCH (11:04)
[2016-07-28] MEDS: NIFEdipine (XL) 90 MG TAB PO SCH (11:05)
[2016-07-28] MEDS: SPIRONOLACTONE 25 MG TAB PO SCH ×2 (11:06→21:30)
--- NOTE | 2016-07-28 16:14 | CONS ---
DATE OF ADMISSION: 07/26/2016 DATE OF CONSULTATION: 07/28/2016 TYPE OF CONSULTATION: Orthopedic Surgical HISTORY OF PRESENT ILLNESS: The patient is an 89-year-old female who was admitted on 07/26/2016 whe n she was brought into the emergency room because of generalized weakness and frequent history of fa lls. She is on dialysis because of her end-stage renal disease and because of these frequent falls, she has been missing her dialysis. She is also known to have hypertension, anemia of chronic disea se and hyperthyroidism. Her family members said that her frequent falls because of the pain involvi ng her knee. PHYSICAL EXAMINATION: My examination revealed an 89-year-old female who could not participate in [facility] history taking and physical examination. There seems to be slight enlargement of the right knee. Range of motion of the knee was mildly limited with some pain. There was no unusual abnormal align ment. There were no signs of instability. There were no signs of any acute pyogenic or inflammator y process going on. DIAGNOSTIC DATA: X-rays of both knees revealed the presence of degenerative osteoarthritis of a mod erate degree. DIAGNOSTIC IMPRESSION: Degenerative osteoarthritis of a moderate degree, both knees. TREATMENT PLAN: Trial of steroid injection into both knees. Dictated By: BURTON MIRZA/FERNANDO Conf#: [id number] DID#: [id number]
[2016-07-28] MEDS ORDERED: BETAMET NA PHOS/AC(6 MG/ML) 5ML INJ INJ ONE (17:00)
[2016-07-28] MEDS ORDERED: BUPIVACAINE 0.5%/EPI (SDV) 30 ML INJ INJ ONE (17:00)
--- NOTE | 2016-07-28 21:20 | CONS ---
Date/Time of Note Date/Time of Note DATE: 07/28/16 TIME: 21:15 Consult Date/Type/Reason Admit Date/Time July 26, 2016 at 23:39 Initial Consult Date 07/27/2016 Subjective INTERMITTENT CONFUSION, AGITATION Objective CHEST CLEAR ABDOMEN SOFT SUPPLE LOWER EXTREMITIES NO EDEMA Vital Signs Date Time Temp Pulse Resp B/P Pulse Ox O2 Delivery O2 Flow Rate FiO2 07/28/16 20:13 97.8 61 18 93/44 96 07/28/16 12:00 Nasal Cannula 2.0 Intake and Output 07/27/16 07/27/16 07/28/16 15:00 23:00 07:00 Intake Total 400 ml 566.666 ml 323.34 ml Output Total 3400 ml 100 ml Balance -3000 ml 466.666 ml 323.34 ml Results/Medications Result Diagram: 07/28/16 0600 07/28/16 0600 Results 24 hrs Laboratory Tests Test 07/28/16 06:00 White Blood Count 8.8 # Red Blood Count 3.01 L Hemoglobin 9.8 L Hematocrit 31.2 L Mean Corpuscular Volume 103.7 H Mean Corpuscular Hemoglobin 32.6 Mean Corpuscular Hemoglobin Concent 31.4 L Red Cell Distribution Width 16.3 H Platelet Count 143 Mean Platelet Volume 11.2 H Neutrophils % 50.2 Lymphocytes % 12.7 L Monocytes % 29.4 H Eosinophils % 0.0 Basophils % 0.1 Nucleated Red Blood Cells % 0.3 H Neutrophils # 4.4 Lymphocytes # 1.1 Monocytes # 2.6 H Eosinophils # 0.0 Basophils # 0.0 Nucleated Red Blood Cells # 0.0 Sodium Level 138 Potassium Level 3.5 Chloride Level 102 Carbon Dioxide Level 26 Anion Gap 14 # Blood Urea Nitrogen 46 H Creatinine 4.29 H Glucose Level 93 # Calcium Level 8.2 L Magnesium Level 1.9 Medications Current Medications Carvedilol (Coreg) 12.5 mg BID PO Last administered on 07/28/16 11:05; Admin Dose 12.5 MG; Start 07/27/16 at 09:00 Chlorthalidone (Hygroton) 25 mg DAILY PO Last administered on 07/28/16 11:04; Admin Dose 25 MG; Start 07/27/16 at 09:00 Hydralazine HCl (Apresoline) 25 mg Q8H PRN PO ELEVATED BLOOD PRESSURE Last administered on 07/27/16 16:00; Admin Dose 25 MG; Start 07/27/16 at 04:00 Isosorbide Mononitrate (Imdur) 30 mg DAILY PO Last administered on 07/28/16 11 :03; Admin Dose 30 MG; Start 07/27/16 at 09:00 Nifedipine (Procardia Xl) 90 mg DAILY PO Last administered on 07/28/16 11:05; Admin Dose 90 MG; Start 07/27/16 at 09:00 Spironolactone (Aldactone) 25 mg BID PO Last administered on 07/28/16 11:06; Admin Dose 25 MG; Start 07/27/16 at 09:00 Ondansetron HCl (Zofran Inj) 4 mg Q6H PRN IV NAUSEA AND/OR VOMITING; Start 01/03 at 04:30 Acetaminophen (Tylenol Tab) 650 mg Q6H PRN PO PAIN AND OR ELEVATED TEMP; Start 07/27/16 at 04:30 Acetaminophen/ Hydrocodone Bitart ([place] (5/325)) 1 tab Q6H PRN PO PAIN LEVEL 1 -5 Last administered on 07/27/16 12:13; Admin Dose 1 TAB; Start 07/27/16 at 06: 17 Miscellaneous Information (*Rx Drug Level Order Reminder*) 1 ONCE ONCE XX ; Start 07/29/16 at 05:00; Stop 07/29/16 at 05:01 Assessment/Plan Chief Complaint/Hosp Course esrd, needs regular hd but pt is noncompliant and has multiple hospitalistions hypertension uncontrolled hyperkalemia, missed hd rx anemia of crf h/o hysterectomy bilateral knee oa severe resulting in multiple falls , no fractures metabolic acidosis due to crf hd, epogen, uf on hd to improve fluid overload, rehab measures and physical therapy and walker training blood cs positive, on vanco, ucs id pending Problems: RAMIREZ RAE MD July 28, 2016 21:20
[2016-07-29] VITALS (9 sets, daily range): BP systolic 114–146; BP diastolic 55–62; PULSE 57–74; RESP 16–18
[2016-07-29] MEDS: LEVOTHYROXINE 100 MCG TAB PO SCH (06:06)
[2016-07-29] MEDS: CALCIUM ACETATE 667 MG CAP PO SCH ×2 (08:53→12:13)
[2016-07-29] MEDS: ISOSORBIDE MONONITRATE(SR)30 MG TAB PO SCH (08:54)
[2016-07-29] MEDS: NIFEdipine (XL) 90 MG TAB PO SCH (08:54)
[2016-07-29] MEDS: SPIRONOLACTONE 25 MG TAB PO SCH (08:54)
[2016-07-29] MEDS: CHLORTHALIDONE 25 MG TAB PO SCH (08:55)
--- NOTE | 2016-07-29 10:34 | PDOCDIS ---
Discharge Instructions CONDITION Patient Condition: Stable HOME CARE INSTRUCTIONS: Special Diet: Renal ACTIVITY: Activity Restrictions: Slowly Increase Activity Rest between Activity Avoid heavy lifting Avoid Heavy Housework FOLLOW UP/APPOINTMENTS Appointments Follow-up with nephrology as outpatient Follow up with orthopedic surgeon as outpatient AMI LIRIANO MD July 29, 2016 10:34
[2016-07-29] MEDS ORDERED: CLIN-73 PO (10:37)
[2016-07-29] MEDS ORDERED: LIDO700A45 TP (10:37)
[2016-07-29] MEDS ORDERED: LEVO500T72 PO (10:37)
[2016-07-29] MEDS ORDERED: VANC1PLA9 IV (10:53)
--- NOTE | 2016-07-29 11:45 | DS ---
DATE OF ADMISSION: 07/26/2016 DATE OF DISCHARGE: 07/29/2016 CONSULTANTS: 1. Dr. Thu Daly. 2. Dr. Bobby Guajardo. PROCEDURE: Hemodialysis x2. The patient is scheduled for bilateral knee steroid injections today. DIAGNOSES: 1. Systemic inflammatory response syndrome, with gram-positive cocci in pairs and clusters, sensiti ve to vancomycin and clindamycin. Patient will be discharged on vancomycin as per pharmacy, and wit h hemodialysis. 2. Urinary tract infection with Escherichia coli. Will discharge on Levaquin. 3. End-stage renal disease. On hemodialysis. Nephrology was consulted. 4. Frequent falls secondary to severe knee osteoarthritis. PT/OT evaluation and treatment was done . Orthopedic surgeon was consulted. Patient will obtain steroid injection in her knees. 5. Essential hypertension. Well controlled on medical management. 6. Hyperkalemia secondary to missed dialysis. Stable status post hemodialysis. 7. Hypothyroidism. Continue levothyroxine. 8. Anemia of chronic disease. Stable. LABORATORY: Sodium 138, potassium 3.5, chloride 102, bicarbonate 26, BUN 46, creatinine 4.29, gluco se 93, calcium 8.2, magnesium 1.9. WBC 8.8, hemoglobin 9.1, hematocrit 31.2, platelets 143, MCV 103 .3. PHYSICAL EXAMINATION: VITAL SIGNS: Temperature 98.0, pulse 73, respirations 18, blood pressure 146/58, oxygen 98% on room air. GENERAL APPEARANCE: The patient is lying in bed comfortably, without any distress. She is awake, a lert and oriented. EYES: Conjunctivae and lids are normal. Pupils are normal. Extraocular is normal. Hearing is kevin ssly normal. NECK: Supple. Trachea is midline. CHEST: Normal expansion of the thorax during inspiration. CARDIOVASCULAR: Normal S1, S2. Regular rhythm and rate. LUNGS: Clear to auscultation bilaterally. EXTREMITIES: Upper and lower extremities there is evidence of osteoarthritis, especially in the kne e area. NEUROLOGIC: Cranial nerves II through XII are grossly intact. She is awake, alert and oriented. HOSPITAL COURSE: This is a very pleasant 89-year-old female with a past medical history of end-stag e renal disease, on hemodialysis, hypertension, hypothyroidism, anemia of chronic disease, who prese nted to the emergency room complaining of having bilateral arm, knee pain, generalized weakness and frequent falls. The patient stated as a result of that she actually missed the last 3 sessions of h emodialysis. She reported having some shortness of breath. Seems like her knees are causing diffic ulty with ambulation and as a result she has had multiple falls. She denies hitting her head. No l oss of consciousness. The patient had a fall on her right shoulder. There was no evidence of fract ure on the x-rays. She is a DNR/DNI. Upon arrival to emergency room the patient's blood pressure w as 170/75, heart rate of 59, respirations 19. Her peripheral equipment operator, Dr. Daly, was consulted. The pat ient obtained her hemodialysis. Orthopedic surgeon was consulted. Patient's x-ray of the humerus s howed no fracture or dislocation. Evidence of extensive degenerative changes at the right AC joint. Her knee x-ray showed no fracture or dislocation. Evidence of moderate to severe osteoarthritic c hanges and vascular calcification. The patient obtained 2 of hemodialysis during the course o f the hospitalization. Her potassium is within normal limits. The patient was seen and evaluated b y an orthopedic surgeon, for which she is planned for knee steroid injections today prior to dischar ge. Regarding her hypertension, her blood pressure upon admission was found to be severely elevated at 172/75. Patient was placed back on her medication. On 07/28/2016 the patient's blood pressure was also found to be elevated. This was since the patient did not obtain her blood pressure medicat ion in the morning prior to dialysis, but after dialysis the blood pressure started to improve to 12 8/59. Unfortunately, on the first night when the patient was admitted she was found to be agitated and altered. She was treated with Ativan and despite that she continued to become more agitated. S he was placed in soft restraints. I placed the order that the patient should not obtain any type of benzodiazepine, which may make her condition worse. Status post the patient was placed on 1:1 and the restraint was discontinued. The patient did not receive any more benzodiazepine and this mornin g the patient is awake, alert, oriented, able to follow commands and able to answer all the question s properly. At this time the patient is medically stable to be discharged home. Her blood culture was found to be positive for strep hemolytic group G, and I have placed her on vancomycin with hemod ialysis. Also the patient's urine culture was found with E. coli. She is afebrile. WBC is within normal limits. At this time the patient is medically stable to be discharged home. I have discusse d the discharge with her daughter and have given the option for the patient to be transferred to a [facility] facility, but they have refused and they want to take the patient home with physical therapy, which will be provided by . CONDITION AT THE TIME OF DISCHARGE: Stable. Dictated By: AMI LIRIANO MD PN/NTS Conf#: [id number] DID#: [id number]
[2016-07-29] MEDS ORDERED: VANCOMYCIN 1 GM in NS 250 ML IVPB SCH (12:45)
== END 2016-07-29 18:00 | disposition home or self-care (01) | DRG 682 ==
LOC: E/R 20:45 → TEL 23:39
PROVIDERS: ADMIT Internal Medicine; ATTEND Internal Medicine
PROC: 5A1D60Z (ICD-10-PCS; principal; 2016-07-27)
DX: I12.0 Hypertensive chronic kidney disease with stage 5 chronic kidney disease or end stage renal disease (principal); N18.6 End stage renal disease; E87.2 Acidosis; I95.9 Hypotension, unspecified; R65.10 Systemic inflammatory response syndrome (SIRS) of non-infectious origin without acute organ dysfunction; N39.0 Urinary tract infection, site not specified; E87.70 Fluid overload, unspecified; M19.011 Primary osteoarthritis, right shoulder; M17.0 Bilateral primary osteoarthritis of knee; E87.5 Hyperkalemia; E03.9 Hypothyroidism, unspecified; D63.1 Anemia in chronic kidney disease; D63.8 Anemia in other chronic diseases classified elsewhere; S89.92XA Unspecified injury of left lower leg, initial encounter; S89.91XA Unspecified injury of right lower leg, initial encounter; W19.XXXA Unspecified fall, initial encounter; M79.601 Pain in right arm; B95.4 Other streptococcus as the cause of diseases classified elsewhere; B96.20 Unspecified Escherichia coli [E. coli] as the cause of diseases classified elsewhere; R29.6 Repeated falls; Z66 Do not resuscitate; Z99.2 Dependence on renal dialysis; Z91.19 Patient's noncompliance with other medical treatment and regimen; Z87.891 Personal history of nicotine dependence; Z88.2 Allergy status to sulfonamides; Z91.15 Patient's noncompliance with renal dialysis
CPT/HCPCS: 36415; 71010; 73562; 80048; 80053; 80202; 81001; 81003; 82150; 83605; 83690; 83735; 84100; 84484; 85025; 85610; 85730; 87040; 87086; 90935; 93005; 94664; 96374; 96375; 97162; J0360; J0702; J0886; J1644; J1940; J2060; J2270; J3370; J7030; J7050

== ENCOUNTER 2016-08-08 21:40 | Emergency (ER) | payer OTHER ==
[~2016-08-08] VITALS: Ht 152.4 cm; Wt 58.2 kg
[~2016-08-08 21:40] MED LIST changes: -CHOL20002 PO; -EPOE40009 IJ; +LEVO100T87 PO; -LEVO125T PO; +LEVO500T72 PO; +LIDO700A45 TP; -NIT4 SL; +SPIR25TA PO; -UBID100C24 PO; +VANC1PLA9 IV
[2016-08-08 21:49] VITALS: Ht 152.4 cm; Wt 58.2 kg
[2016-08-08 22:44] LABS: ADD SCAN DIFF NO
[2016-08-08 23:01] LABS: ALBUMIN 3.8 g/dl (3.3-4.9); INR 1.19; PROTIME 15.2 Sec (12.2-14.2); PT RATIO 1.2
[2016-08-08 23:02] LABS: PARTIAL THROMBOPLASTIN TIME 37.5 Sec (25.0-35.0); POTASSIUM 3.9 mmol/L (3.5-5.1)
[2016-08-08 23:04] LABS: ALBUMIN/GLOBULIN RATIO 1.15; BILIRUBIN,INDIRECT 0.7 mg/dl (0-1.1); BILIRUBIN,TOTAL 0.7 mg/dl (0.2-1.3); CREATININE 3.48 mg/dl (0.44-1.00); TOTAL PROTEIN 7.1 g/dl (6.1-8.1)
[2016-08-08 23:05] LABS: CALCIUM 8.2 mg/dl (8.4-10.2)
[2016-08-08 23:17] LABS: TROPONIN-I 0.049 ng/ml (0.00-0.12)
[2016-08-08 23:33] LABS: ABNORMAL IP MESSAGE 1; HEMOGLOBIN 8.8 g/dl (12.0-16.0); MEAN CORPUSCULAR HGB CONC 33.8 g/dl (32.0-37.0); MEAN CORPUSCULAR VOLUME 100.4 fl (82.0-101.0); MEAN PLATELET VOLUME 11.7 fl (7.4-10.4); PLATELET COUNT 147 10^3/UL (140-415); RED BLOOD COUNT 2.59 10^6/ul (4.20-5.40); RED CELL DISTRIBUTION WIDTH 14.9 % (11.5-14.5); WHITE BLOOD COUNT 7.3 10^3/ul (4.8-10.8)
[2016-08-08 23:42] LABS: LYMPHOCYTES # 0.8 10^3/ul (0.8-2.9); MONOCYTE # 1.8 10^3/ul (0.3-0.9); NEUTROPHIL # 4.7 10^3/ul (1.6-7.5)
--- NOTE | 2016-08-08 23:46 | RADRPT ---
PROCEDURE: XR Chest. CLINICAL INDICATION: Shortness of breath. TECHNIQUE: AP Portable chest. COMPARISON: 06/20/2016 FINDINGS: There is moderate cardiomegaly. Atherosclerotic calcifications are noted in the aorta. There is el evation of the left hemidiaphragm. A right chest tunnel dialysis catheter is unchanged. The lungs are clear. The osseous structures are unremarkable. IMPRESSION: No acute findings. RPTAT: HIKT .Davide Gonzalez MD, MD Date Time Electronically viewed and signed by .Davide Gonzalez MD, on 08/08/2016 23:46 .T/
--- NOTE | 2016-08-08 23:53 | ERD ---
ER Documentation Chief Complaint Date/Time DATE: 08/08/16 TIME: 23:51 Chief Complaint IRISH MCKEON, from home,chest pressure pain HPI This is an 82-year-old female brought in the chest pressure and pain after she was emotionally upset. Denies any fevers or chills. She states she is very anxious. Denies any other current problems. Chest pain was right-sided, electric-like, mild to moderate intensity. ROS All systems reviewed and are negative except as per history of present illness. Medications Home Meds Active Scripts Vancomycin/0.9 % Sod Chloride (Vanco 1 Gram/250 ml-0.9% NaCl) 1 Gm/250 Ml Plast..bag, 1 GM IV per phramacy for 14 Days Prov:AMI LIRIANO MD 07/29/16 Lidocaine (Lidocaine) 1 Each Adh..patch, 1 EACH TP DAILY for 14 Days Prov:AMI LIRIANO MD 07/29/16 Levofloxacin* (Levaquin*) 500 Mg Tablet, 500 MG PO Q48H, #5 TAB Prov:AMI LIRIANO MD 07/29/16 Reported Medications Spironolactone* (Aldactone*) 25 Mg Tablet, 25 MG PO BID, #60 TAB 07/26/16 Levothyroxine Sodium* (Levothyroxine Sodium*) 100 Mcg Tablet, 100 MCG PO BEFORE BREAKFAST, #30 TAB 07/26/16 Calcium Acetate* (Calcium Acetate*) 667 Mg Capsule, 667 MG PO WITH MEALS, #30 CAP 06/20/16 Nifedipine* (Nifedipine ER*) 90 Mg Tablet.sa, 90 MG PO DAILY, TAB.SA 06/20/16 Hydralazine Hcl* (Hydralazine Hcl*) 25 Mg Tab, 25 MG PO Q8 Y for ELEVATED BLOOD PRESSURE, #90 TAB 06/20/16 Chlorthalidone* (Chlorthalidone*) 25 Mg Tablet, 25 MG PO DAILY, TAB 12/31/15 Isosorbide Mononitrate* (Isosorbide Mononitrate*) 30 Mg Tab.er.24h, 30 MG PO DAILY, TAB 12/31/15 Carvedilol* (Carvedilol*) 12.5 Mg Tablet, 12.5 MG PO BID, #60 TAB 12/31/15 Allergies Allergies: Coded Allergies: Sulfa (Sulfonamide Antibiotics) (Verified Allergy, Severe, RASHES, 06/20/16) aspirin (Verified Allergy, Unknown, 08/08/16) PMhx/Soc History of Surgery: Yes (Neck fusion, Knee surgery, ) Anesthesia Reaction: No Hx Neurological Disorder: No Hx Respiratory Disorders: No Hx Cardiac Disorders: Yes (CHF) Hx Psychiatric Problems: No Hx Miscellaneous Medical Probl: Yes (frequent falls, ESRD, HTN, anemia) Hx Alcohol Use: No Hx Substance Use: No Hx Tobacco Use: No Smoking Status: Former smoker Physical Exam Vitals Vital Signs Date Time Temp Pulse Resp B/P Pulse Ox O2 Delivery O2 Flow Rate FiO2 08/08/16 21:49 100.0 64 18 133/61 95 Physical Exam Const: [] Head: Atraumatic Eyes: Normal Conjunctiva ENT: Normal External Ears, Nose and Mouth. Neck: Full range of motion..~ No meningismus. Resp: Clear to auscultation bilaterally Cardio: Regular rate and rhythm, no murmurs Abd: Soft, non tender, non distended. Normal bowel sounds Skin: No petechiae or rashes Back: No midline or flank tenderness Ext: No cyanosis, or edema Neur: Awake and alert Psych: Normal Mood and Affect Result Diagram: 08/08/16221908/08/162219 Results 24 hrs Laboratory Tests Test 08/08/16 22:20 White Blood Count 7.310^3/ul Red Blood Count 2.5910^6/ul Hemoglobin 8.8g/dl Hematocrit 26.0% Mean Corpuscular Volume 100.4fl Mean Corpuscular Hemoglobin 34.0pg Mean Corpuscular Hemoglobin Concent 33.8g/dl Red Cell Distribution Width 14.9% Platelet Count 06882^3/UL Mean Platelet Volume 11.7fl Neutrophils % 64.0% Lymphocytes % 11.0% Monocytes % 25.0% Neutrophils # 4.710^3/ul Lymphocytes # 0.810^3/ul Monocytes # 1.810^3/ul Differential Comment MANUAL DIFF Prothrombin Time 15.2Sec Prothrombin Time Ratio 1.2 INR International Normalized Ratio 1.19 Activated Partial Thromboplast Time 37.5Sec Sodium Level 138mmol/L Potassium Level 3.9mmol/L Chloride Level 94mmol/L Carbon Dioxide Level 29mmol/L Anion Gap 19 Blood Urea Nitrogen 29mg/dl Creatinine 3.48mg/dl Glucose Level 111mg/dl Calcium Level 8.2mg/dl Total Bilirubin 0.7mg/dl Direct Bilirubin 0.00mg/dl Indirect Bilirubin 0.7mg/dl Aspartate Amino Transf (AST/SGOT) 20IU/L Alanine Aminotransferase (ALT/SGPT) 19IU/L Alkaline Phosphatase 70IU/L Troponin I 0.049ng/ml B-Type Natriuretic Peptide 16447TA/ML Total Protein 7.1g/dl Albumin 3.8g/dl Globulin 3.30g/dl Albumin/Globulin Ratio 1.15 Procedures/MDM EKG: Rate/Rhythm: Normal Sinus Rhythm QRS, ST, T-waves: No changes consistent w/ acute ischemia Impression: No evidence of ischemia or arrhythmia Chest X-ray 1V Interpreted by me: Soft Tissue: No acute abnormalities Bones: No acute abnormalities Mediastinum/Cardiac Silhouette/Lungs: No acute abnormalities Medical decision making: Symptomatology is most consistent with generalized anxiety. At this point she is well-appearing. She will be discharged home. Short course of Valium given. Daughter at the bedside and since Her Diagnosis. Departure Diagnosis: Primary Impression: Chest pain Chest pain type: unspecified Qualified Code: R07.9 - Chest pain, unspecified type Additional Impression: Anxiety Condition: Stable ASHOK BRANDON August 08, 2016 23:53
[2016-08-08] MEDS ORDERED: VAL2 PO (23:54)
[2016-08-09 00:10] VITALS: BP 172/54; PULSE 65; RESP 16; TEMP 98.2
== END 2016-08-09 00:17 | disposition home or self-care (01) ==
LOC: E/R 21:40
DX: R07.89 Other chest pain (principal); F41.9 Anxiety disorder, unspecified; I50.9 Heart failure, unspecified; I10 Essential (primary) hypertension; Z87.891 Personal history of nicotine dependence
CPT/HCPCS: 36415; 71010; 80053; 83880; 84484; 85025; 85610; 85730; 93005

== ENCOUNTER 2016-08-18 09:19 | Emergency (ER) | payer OTHER ==
[~2016-08-18] VITALS: Ht 157.5 cm; Wt 60.0 kg
[~2016-08-18 09:19] MED LIST changes: +VAL2 PO
[2016-08-18 09:27] VITALS: Ht 157.5 cm; Wt 60.0 kg
[2016-08-18] MEDS ORDERED: ACETAMINOPHEN/CODEINE #3 TAB PO ONE (10:30)
[2016-08-18] MEDS ORDERED: ACETAMINOPHEN 325 MG TAB PO ONE (10:30)
--- NOTE | 2016-08-18 11:06 | RADRPT ---
PROCEDURE: XR Right Shoulder CLINICAL INDICATION: Trauma TECHNIQUE: An AP and a Y-view were submitted. COMPARISON: None FINDINGS: Osseous structures: appear well mineralized and intact with no fracture or destructive process iden tified. Joint spaces: The glenohumeral joint appears unremarkable. Mild degenerative changes seen about the right AC joint with calcification seen superior to the joint space. Soft tissues: appear unremarkable. IMPRESSION: 1. No fracture or dislocation is evident. 2. Mild degenerative change seen about the right AC joint with dystrophic calcifications seen super ior to the joint space. Physician Luisa Date Time Electronically viewed and signed by Physician Luisa on 08/18/2016 11:06 /
--- NOTE | 2016-08-18 11:15 | RADRPT ---
PROCEDURE: CT brain without contrast CLINICAL INDICATION: Head trauma/injury TECHNIQUE: CT of the brain without contrast performed on a multidetector CT scanner, with multiplan ar reformats. One or more of the following dose reduction techniques were used: Automated exposure control, adjustment in mA and / or kV according to patient size, use of iterative reconstructive julissa hnique. CTDIvol = 45 mGy; DLP = 630 mGy-cm. COMPARISON: 01/14/2000 a FINDINGS: No acute intracranial hemorrhage is identified. No extra-axial fluid collection is seen. There is no mass effect. No midline shift is identified. Ventricles and sulci are mild to moderately enlarged compatible with volume loss. There are mild areas of hypodensity in the periventricular - deep white matter which are nonspecific but suggestive of chronic small vessel ischemic changes. Zhou-white differentiation is preserved. Atherosclerotic calcifications of the proximal intracranial arteries are noted. Calvarium and skull base are intact. There is now severe left sphenoid sinus opacification with thi ckening and possible large polyp or retention cyst. There is also now near complete right sphenoid sinus opacification, which now appears relatively mildly enlarged without aggressive features, with associated focal opacity extending into the adjacent posterior right nasal cavity with widening of t he sphenoid ostium; this could represent an underlying mucocele. 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 There is persistent partial bilateral ethmoid air cell opac ification, similar in appearance. IMPRESSION: 1. No evidence of acute intracranial pathology. 2. Mild to moderate volume loss, with mild chronic small vessel ischemic changes. 3. 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 RPTAT: VV .Jose Fernando MD, MD Date Time Electronically viewed and signed by .Jose Fernando MD, MD on 08/18/2016 11:14 .O/
--- NOTE | 2016-08-18 11:26 | RADRPT ---
PROCEDURE: CT cervical spine without contrast. CLINICAL INDICATION: Neck trauma/injury TECHNIQUE: CT of the cervical spine without contrast was performed on a multidetector CT scanner, w ith multiplanar reformats. One or more of the following dose reduction techniques were used: Automa tiago exposure control, adjustment in mA and / or kV according to patient size, use of iterative recon structive technique. CTDIvol = 22 mGy and DLP = 483 mGy-cm. COMPARISON: None available. FINDINGS: No fracture or dislocation is identified. There is straightening of the lordosis of the mid - lower cervical spine. There is grade 1 anterolisthesis of C3 on C4 and C7 on T1. Vertebral bodies are g rossly maintained in height. There is solid osseous interbody fusion at C4-5, C5-6 without hardware . There are atlantoaxial joint degenerative changes. There is anterior spondylosis at C3-4, C6-7, and C 71 there is disk space narrowing, mild to moderate at C3-4, C7-T1. Also noted is thoracic sp ondylosis, more pronounced at T1-2 with grade 1 anterolisthesis at T1-2 and 2-3. There is a nodular partially imaged in the left upper lobe measuring up to at least 2 cm. Atherosclerotic calcificati ons and right jugular central venous catheter are noted. C2-3: There is a posterior disk/osteophyte and ligamentum flavum hypertrophy. Mild to moderate cent ral canal stenosis is identified. There are uncovertebral osteophytes and advanced facet arthropath y with mild bilateral foraminal narrowing. C3-4: There is a posterior disk/osteophyte and ligamentum flavum hypertrophy. Moderate - severe ned tral canal stenosis is identified. There are uncovertebral osteophytes and advanced facet arthropat hy with severe bilateral foraminal narrowing. C4-5: There are posterior osteophytes. Mild central canal stenosis is identified. There are uncove rtebral osteophytes and facet arthropathy with mild bilateral foraminal narrowing. C5-6: There are posterior osteophytes. No central canal stenosis is identified. There are uncovert ebral osteophytes and facet arthropathy with mild right foraminal narrowing. C6-7: There is a post disk osteophyte and ligamentum flavum hypertrophy. Moderate central canal st enosis is identified. There are uncovertebral osteophytes and advanced facet arthropathy with moder ate right, moderate to severe left foraminal narrowing. C7-T1: There is ligamentum flavum hypertrophy with calcifications. Mild central canal stenosis is i dentified. There is advanced facet arthropathy with mild-moderate bilateral foraminal narrowing. IMPRESSION: 1. No fracture/dislocation identified. 2. 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 3. Solid osseous interbody fusion at C4-5, C5-6. 4. Moderate to severe central canal stenosis at C3-4, and additional multilevel mild to moderate ce ntral canal stenoses detailed above. 5. Multilevel foraminal narrowing detailed above. 6. At least 2 cm left upper lobe nodule. Findings suspicious for neoplasm. Follow-up with dedicat ed CT is recommended. RPTAT: VV .Jose Fernando MD, Date Time Electronically viewed and signed by .Jose Fernando MD, on 08/18/2016 11:26 .O/
[2016-08-18] MEDS ORDERED: DICL100G37 TOP (11:57)
[2016-08-18] MEDS ORDERED: HYDR-3672 PO (11:59)
[2016-08-18] MEDS ORDERED: LEVO125T71 PO (12:00)
[2016-08-18] MEDS ORDERED: TYL500 PO (13:41)
[2016-08-18] MEDS ORDERED: ACET1TAB40 PO (13:41)
--- NOTE | 2016-08-18 13:56 | ERD ---
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 She also believes that she struck her head although she does not have a headache right now is. She also has neck pain that is chronic but exacerbated. She had no chest pain shortness of breath or lightheadedness. She states that is just a mechanical fall secondary to her bad knees. She lives at home with her son. ROS All systems reviewed and are negative except as per history of present illness. Medications Home Meds Active Scripts Acetaminophen* (Tylenol*) 500 Mg Tab, 500 MG PO Q6H Y for MILD PAIN LEVEL 1-3, # 20 TAB Prov:SARAHVIJAYA DO 08/18/16 Acetaminophen with Codeine (Acetaminophen-Cod #3 Tablet) 1 Each Tablet, 1 TAB PO Q6H, #11 TAB Prov:SARAHVIJAYA DO 08/18/16 Reported Medications Levothyroxine Sodium* (Levoxyl*) 125 Mcg Tablet, 125 MCG PO BEFORE BREAKFAST, # 30 TAB 08/18/16 Hydralazine Hcl* (Hydralazine Hcl*) 50 Mg Tab, 50 MG PO TID Y for ELEVATED BLOOD PRESSURE, #90 TAB 08/18/16 Diclofenac Sodium* (Voltaren* Gel) 1% -100 Gm Gel, 2 GM TOP TID, #1 TUB 08/18/16 Spironolactone* (Aldactone*) 25 Mg Tablet, 25 MG PO BID, #60 TAB 07/26/16 Calcium Acetate* (Calcium Acetate*) 667 Mg Capsule, 667 MG PO WITH MEALS, #30 CAP 06/20/16 Nifedipine* (Nifedipine ER*) 90 Mg Tablet.sa, 90 MG PO DAILY, TAB.SA 06/20/16 Chlorthalidone* (Chlorthalidone*) 25 Mg Tablet, 25 MG PO DAILY, TAB 12/31/15 Isosorbide Mononitrate* (Isosorbide Mononitrate*) 30 Mg Tab.er.24h, 30 MG PO DAILY, TAB 12/31/15 Carvedilol* (Carvedilol*) 12.5 Mg Tablet, 12.5 MG PO BID, #60 TAB 12/31/15 Discontinued Reported Medications Levothyroxine Sodium* (Levothyroxine Sodium*) 100 Mcg Tablet, 100 MCG PO BEFORE BREAKFAST, #30 TAB 07/26/16 Hydralazine Hcl* (Hydralazine Hcl*) 25 Mg Tab, 25 MG PO Q8 Y for ELEVATED BLOOD PRESSURE, #90 TAB 06/20/16 Discontinued Scripts Diazepam* (Valium*) 2 Mg Tab, 2 MG PO BID, #20 TAB Prov:ASHOK BRANDON 08/08/16 Vancomycin/0.9 % Sod Chloride (Vanco 1 Gram/250 ml-0.9% NaCl) 1 Gm/250 Ml Plast..bag, 1 GM IV per phramacy for 14 Days Prov:AMI LIRIANO MD 07/29/16 Lidocaine (Lidocaine) 1 Each Adh..patch, 1 EACH TP DAILY for 14 Days Prov:AMI LIRIANO MD 07/29/16 Levofloxacin* (Levaquin*) 500 Mg Tablet, 500 MG PO Q48H, #5 TAB Prov:AMI LIRIANO MD 07/29/16 Allergies Allergies: Coded Allergies: Sulfa (Sulfonamide Antibiotics) (Verified Allergy, Severe, RASHES, 08/18/16) aspirin (Verified Allergy, Unknown, 08/18/16) PMhx/Soc History of Surgery: Yes (Neck fusion, Knee surgery, ) Anesthesia Reaction: No Hx Neurological Disorder: No Hx Respiratory Disorders: No Hx Cardiac Disorders: Yes (CHF) Hx Psychiatric Problems: No Hx Miscellaneous Medical Probl: Yes (frequent falls, ESRD, HTN, anemia) Hx Alcohol Use: No Hx Substance Use: No Hx Tobacco Use: No Smoking Status: Never smoker Physical Exam Vitals Vital Signs Date Time Temp Pulse Resp B/P Pulse Ox O2 Delivery O2 Flow Rate FiO2 08/18/16 12:03 96.7 59 18 156/61 100 Room Air 08/18/16 09:27 98.2 64 17 176/60 99 Physical Exam Const: [] No distress Head: Atraumatic Eyes: Normal Conjunctiva ENT: Normal External Ears, Nose and Mouth. Neck: Full range of motion..~ No meningismus. Resp: Clear to auscultation bilaterally Cardio: Regular rate and rhythm, no murmurs Abd: Soft, non tender, non distended. Normal bowel sounds Skin: No petechiae or rashes Back: No midline or flank tenderness Ext: No cyanosis, or edema, mild tenderness to palpation along deltoid area. Able to move shoulder with good range of motion but states that has pain when does so. No deformities. Distal pulses intact all 4 extremities. No other area of joint tenderness. Bilateral knee crepitus good range of motion. Neur: Awake and alert and oriented 3, no focal deficits, cranial nerves II through XII intact, good finger to nose cerebellar. Psych: Normal Mood and Affect Results 24 hrs Current Medications Medications (Trade) Dose Ordered Sig/Sanam Route PRN Reason Start Time Stop Time Status Last Admin Dose Admin Acetaminophen (Tylenol Tab) 650 mg ONCE ONCE PO 08/18/16 10:30 08/18/16 10:30 DC Acetaminophen/ Codeine Phosphate (Tylenol No.3) 1 tab ONCE ONCE PO 08/18/16 10:30 08/18/16 10:31 DC 08/18/16 11:25 Procedures/MDM Elderly female suffering a mechanical fall. She has suffered other falls in the past 2. She does not want to be admitted to the hospital. She states that she is going to call her son to come pick her up. She has a walker at home already. We will provide her with a shoulder sling at her request for the shoulder to heal better.. She is given a Tylenol with codeine in the emergency room because she wanted town codeine and Valium. I do not want to give her Valium at this time as she had mechanical fall earlier in the day already. Having her follow-up with primary care doctor within the next day or 2 to let them know about the fall and discuss options to prevent this from happening in the future. Discharging with a few of Tylenol with codeine for severe pain as well as Tylenol for regular pain in instructing her not to take both of them at the same time. Return precautions to the ER given for any reason she is concerned about whatsoever. Shoulder x-ray interpretation: Arthritis without evidence of fracture CT C-spine interpretation: Multilevel degenerative arthritis with multilevel foraminal stenosis, some of which is severe CT head interpretation: I see no acute process, no hemorrhage or mass-effect or midline shift no skull fracture EKG interpretation: Normal sinus rhythm rate of 60, normal axis, no ST or T- wave changes concerning for acute ischemia, nonspecific T-wave abnormality with slightly flattened T waves in multiple leads. Normal intervals Departure Diagnosis: Primary Impression: Shoulder contusion Additional Impressions: Head injury Fall Osteoarthritis Condition: Stable Patient Instructions: HEAD INJURY, No Wake-Up (Adult), Fall Prevention, Shoulder Contusion Additional Instructions: Call your primary care doctor TOMORROW for an appointment during the next 1-2 days.See the doctor sooner or return here if your condition worsens before your appointment time. VIJAYA SMITH DO Aug 18, 2016 13:56
[2016-08-18 13:59] VITALS: BP 165/79; PULSE 61; RESP 18; TEMP 97
== END 2016-08-18 15:04 | disposition home or self-care (01) ==
LOC: E/R 09:19
DX: S40.011A Contusion of right shoulder, initial encounter (principal); S09.90XA Unspecified injury of head, initial encounter; I12.0 Hypertensive chronic kidney disease with stage 5 chronic kidney disease or end stage renal disease; N18.6 End stage renal disease; I50.9 Heart failure, unspecified; M17.9 Osteoarthritis of knee, unspecified; W06.XXXA Fall from bed, initial encounter; Y92.9 Unspecified place or not applicable
CPT/HCPCS: 70450; 72125; 93005

== ENCOUNTER 2017-03-18 13:51 | Emergency (ER) | END 2017-03-18 23:55 | disposition home or self-care (01) ==